=== PATIENT | female | born 2000 | race Caucasian/White ===

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

== ENCOUNTER 2021-02-17 08:00 | Outpatient (CLI) | payer MEDICAID ==
[2021-02-18 19:57] LABS: BACTERIAL VAGINOSIS DNA NEGATIVE (NEGATIVE); CANDIDA GLABRATA DNA NEGATIVE (NEGATIVE); CANDIDA GROUP DNA POSITIVE (NEGATIVE); CANDIDA KRUSEI DNA NEGATIVE (NEGATIVE); TRICHOMONAS VAGINALIS DNA NEGATIVE (NEGATIVE)
== END 2021-02-17 23:59 | disposition home or self-care (01) ==
LOC: LAB 08:00
PROVIDERS: ATTEND Obstetrics & Gynecology
DX: B37.9 Candidiasis, unspecified (principal)
CPT/HCPCS: 87661; 87801

== ENCOUNTER 2022-02-01 13:49 | Emergency (ER) | payer MEDICAID ==
--- NOTE | 2022-02-01 16:35 | ED Physician Documentation ---
History of Present Illness - Stated complaint Stated Complaint: FACE NUMB/MIGRAINE - Chief complaint Chief Complaint: Neuro - History obtained from History obtained from: Patient - History of Present Illness Timing: How many weeks ago (several weeks) Pain level max: 7 Pain level now: 0 - Additonal information Additional information: Patient is a 21-year-old female who presents to the emergency department stating she has a history of migraine headaches. 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 She had MRIs of this area until she was 18, but then lost contact with [facility]. She states that there was thinning of her optic nerves bilaterally. She states that over the past 4 weeks she has had increased frequency of headache. This has been accompanied by left facial tingling and left arm tingling. The symptoms seem to resolve when her headache resolves. Nothing seems to make it better or worse. Does not currently have a neurologist. She does have a primary care provider in [place]. Denies any possibility of . Does have a sound that is almost 2 years old. Patient states that she has a family history of brain aneurysms as well. There is also a family history of brain cancer. 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 HEENT: None Psych: Depression, Anxiety, Obsessive compulsive disorder Musculoskeletal: None Derm: None - Past Surgical History Past Surgical History: No General: Other - Present Medications Home Medications: Ambulatory Orders Medication Instructions Recorded Confirmed No Known Home Medications 02/01/22 02/01/22 - Allergies Allergies/Adverse Reactions: Allergies Allergy/AdvReac Type Severity Reaction Status Date / Time No Known Drug Allergies Allergy Verified 02/01/22 14:00 - Social History Does the pt smoke?: No Smoking Status: Never smoker Does the pt drink ETOH?: No Does the pt have substance abuse?: No - Immunizations Immunizations are current?: Yes - POLST Patient has POLST: No PD ED PE NORMAL - Vitals Vital signs reviewed: Yes - General General: Alert and oriented X 3, No acute distress - HEENT HEENT: Atraumatic, PERRL, EOMI, Moist mucous membranes - Neck Neck: Supple, no meningeal sign - Cardiac Cardiac: RRR, Strong equal pulses - Respiratory Respiratory: No respiratory distress, Clear bilaterally - Abdomen Abdomen: Soft, Non tender, Non distended - Back Back: No spinal TTP - Derm Derm: Warm and dry - Neuro Neuro: Alert and oriented X 3, 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, No motor deficit, No sensory deficit, Normal speech Eye Opening: Spontaneous Motor: Obeys Commands Verbal: Oriented GCS Score: 15 Results - Vitals Vitals: Vital Signs - 24 hr 02/01/22 02/01/22 02/01/22 13:57 16:49 18:00 Temperature 36.6 C 36.5 C 36.6 C Heart Rate 92 89 89 Respiratory 14 14 16 Rate Blood Pressure 114/66 96/81 H 128/83 H O2 Saturation 98 98 99 Oxygen O2 Source Room air - Labs Labs: Laboratory Tests 02/01/22 02/01/22 02/01/22 16:45 16:45 16:45 WBC 6.4 RBC 4.50 Hgb 13.8 Hct 38.3 MCV 85.1 MCH 30.7 MCHC 36.0 RDW 12.5 Plt Count 269 MPV 9.3 Neut # (Auto) 3.9 Lymph # (Auto) 1.5 [place] # (Auto) 0.9 Eos # (Auto) 0.1 Baso # (Auto) 0.1 Absolute Nucleated RBC 0.00 Nucleated RBC % 0.0 Sodium 140 Potassium 3.4 L Chloride 105 Carbon Dioxide 26 Anion Gap 9.0 BUN 14 Creatinine 0.6 Estimated GFR (MDRD) 127 Glucose 88 Calcium 10.0 Serum HCG, Qual NEGATIVE - Rads (name of study) CTA head Radiology: Final report received, EMP read contemporaneously, See rad report CTA neck Radiology: Final report received, EMP read contemporaneously, See rad report PD MEDICAL DECISION MAKING - ED course Complexity details: reviewed results, re-evaluated patient, considered differential, d/w patient ED course: No acute findings on CT angiogram of the head and neck. No evidence of aneurysms. No evidence of carotid dissection. 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 Appears to have complex migraines. Asymptomatic here. No neurological deficits. Cranial nerves i ntact. We will have her follow-up with her doctor for further care. Patient counseled regarding signs and symptoms for which I believe and urgent re- evaluation would be necessary. Patient with good understanding of and agreement to plan and is comfortable going home at this time This document was made in part using voice recognition software. While efforts are made to proofread this document, sound alike and grammatical errors may occur. Departure - Departure Disposition: 01 Home, Self Care Clinical Impression: Migraine Qualifiers: Migraine type: unspecified Status migrainosus presence: without status migrainosus Intractability: not intractable Qualified Code(s): G43.909 - Migraine, unspecified, not intractable, without status migrainosus Condition: Good Instructions: ED Headache Migraine Follow-Up: [facility] [Provider Group] Comments: You appear to have complex migraine headaches. Your CT angiogram of your head and neck are normal today. Please follow-up with your doctor for further care. It is recommended that you have an MRI to evaluate your pituitary gland from the enlargement you had as a child. Discharge Date/Time: 02/01/22 18:05
[2022-02-01] MEDS ORDERED: iohexoL-300 100 ML VIAL ONE (17:00)
[2022-02-01 17:01] LABS: BASOPHILS # (AUTO) 0.1 10^3/uL (0.0-0.1); BASOPHILS % (AUTO) 0.8 %; EOSINOPHILS # (AUTO) 0.1 10^3/uL (0.0-0.7); EOSINOPHILS % (AUTO) 0.9 %; HCT - HEMATOCRIT 38.3 % (37.0-47.0); HGB - HEMOGLOBIN 13.8 g/dL (12.0-16.0); LYMPHOCYTES # (AUTO) 1.5 10^3/uL (1.5-3.5); LYMPHOCYTES % (AUTO) 23.6 %; MEAN CORPUSCULAR HEMOGLOBIN 30.7 pg (27.0-31.0); MEAN CORPUSCULAR VOLUME 85.1 fL (81.0-99.0); MEAN PLATELET VOLUME 9.3 fL (7.9-10.8); MONOCYTES # (AUTO) 0.9 10^3/uL (0.0-1.0); MONOCYTES % (AUTO) 14.2 %; NEUTROPHILS # (AUTO) 3.9 10^3/uL (1.5-6.6); NEUTROPHILS % (AUTO) 60.3 %; PLT - PLATELET COUNT 269 10^3/uL (130-450); RED CELL DISTRIBUTION WIDTH 12.5 % (12.0-15.0); WHITE BLOOD COUNT 6.4 x10^3/uL (4.8-10.8)
[2022-02-01 17:07] LABS: CREATININE 0.6 mg/dL (0.4-1.0); POTASSIUM 3.4 mmol/L (3.5-5.0)
[2022-02-01 17:22] LABS: HCG,QUALITATIVE BLOOD NEGATIVE
[2022-02-01] MEDS ORDERED: iohexoL-300 100 ML VIAL IVP ONE (17:39)
--- NOTE | 2022-02-01 17:46 | CT Report ---
PROCEDURE: ANGIO HEAD W/WO INDICATIONS: L sided facial/arm tinglin w RAMIREZ x 4wk, h/o pit mark CONTRAST: IV CONTRAST: Optiray 320 ml: 80 PO CONTRAST: *NO PO CONTRAST TECHNIQUE: Precontrast 4.5 mm thick angled axial sections acquired from the foramen magnum to the vertex. Afte r the administration of intravenous contrast, 1 mm thick sections acquired through the [place] of [place] is. Postcontrast 4.5 mm thick sections then re-acquired from the foramen magnum to the vertex. 3-di mensional yuwsowb-sonucyzpp-tithaawceo (MIP) and/or volume rendering reformats were acquired of the c entral intracranial vasculature. For radiation dose reduction, the following was used: automated ex posure control, adjustment of mA and/or kV according to patient size. COMPARISON: CT head dated 04/01/2019 FINDINGS: Image quality: Excellent. Anterior circulation: Intracranial internal carotid arteries are normal in size and flow. The flow within the paired anterior cerebral arteries is normal and symmetric. The flow within the middle cer ebral arteries is normal and symmetric. The anterior communicating artery is seen. No aneurysms are seen. Posterior circulation: Visualized portions of the vertebral arteries demonstrate normal caliber, and join to form a normal appearing basilar artery. Flow within the posterior cerebral arteries is norm al and symmetric. No aneurysms are seen. CSF spaces: Ventricles are normal in size and shape. Basal cisterns are patent. No extra-axial flu id collections. Brain: No midline shift. No intracranial bleeds or masses. Smith-white matter interface appears int act. Skull and face: Calvarium and facial bones appear intact, without suspicious lesions. Sinuses: Visualized sinuses and mastoids are clear. IMPRESSION: 1. Normal CT head. 2. Normal CTA head. 3. Normal CTA neck. Reviewed by: Yannick Lincoln on 02/01/2022 5:45 PM PDT Approved by: Yannick Lincoln on 02/01/2022 5:45 PM PDT Station ID: [id number]
--- NOTE | 2022-02-01 17:47 | CT Report ---
PROCEDURE: ANGIO NECK W INDICATIONS: L sided facial/arm tinglin w RAMIREZ x 4wk, h/o pit mark CONTRAST: IV CONTRAST: Optiray 320 ml: 80 PO CONTRAST: *NO PO CONTRAST TECHNIQUE: After the administration of intravenous contrast, 1.5 mm axial sections acquired from the aortic arch to the [place] of [place]. Coronal 3-D maximum intensity projection (MIP) and/or volume rendering ref ormats were then performed. For radiation dose reduction, the following was used: automated exposur e control, adjustment of mA and/or kV according to patient size. COMPARISON: None. FINDINGS: Image quality: Excellent. Carotid system: The great vessels demonstrate a conventional anatomy as they arise from the aortic a rch. The origins of the common carotid arteries appear patent. The common carotid arteries demonstr ate normal calibers and courses. The bifurcation regions appear normal bilaterally. The internal ca rotid arteries demonstrate normal caliber and course. Posterior circulation: The origins of the vertebral arteries appear patent. The more superior porti ons of the vertebral arteries demonstrate normal course and caliber. They join to form a normal appe aring basilar artery. Soft tissues: Visualized neck soft tissues demonstrate no suspicious abnormalities. The thyroid is normal in size and there are no incidental findings. Bones: No suspicious bony lesions. Visualized cervical spine appears normally aligned. IMPRESSION: Normal CTA neck The estimate of stenosis included in the report of the imaging study was calculated using the NASCET method Reviewed by: Yannick Lincoln on 02/01/2022 5:45 PM PDT Approved by: Yannick Lincoln on 02/01/2022 5:45 PM PDT Station ID: [id number]
[2022-02-01 18:00] VITALS: BP 128/83
== END 2022-02-01 18:05 | disposition home or self-care (01) ==
LOC: ED 13:49
DX: G43.909 Migraine, unspecified, not intractable, without status migrainosus (principal); E23.7 Disorder of pituitary gland, unspecified
CPT/HCPCS: 36415; 70496; 70498; 80048; 84703; 85025; 99282; 99284; Q9967

== ENCOUNTER 2022-02-26 00:13 | Emergency (ER) | payer MEDICAID ==
--- NOTE | 2022-02-26 01:23 | ED Physician Documentation ---
History of Present Illness - Stated complaint Stated Complaint: FEMALE - Chief complaint Chief Complaint: Abd Pain - History obtained from History obtained from: Patient - Additonal information Additional information: The patient comes to the emergency department chief complaint of vaginal bleeding. She has had 4 positive tests over the last week and a half and she is concerned because she is bleeding. She has had 1 other and has a 2-year-old child from that. The patient was just seen here for headaches about 3-1/2 weeks ago and in preparation for CT scan, had a serum qualitative hCG which was negative. This was on February 01. The patient states her last menstrual period was January 07. Review of Systems Ten Systems: 10 systems reviewed and negative Constitutional: reports: Reviewed and negative Eyes: reports: Reviewed and negative Ears: reports: Reviewed and negative Nose: reports: Reviewed and negative Throat: reports: Reviewed and negative Cardiac: reports: Reviewed and negative Respiratory: reports: Reviewed and negative GI: reports: Reviewed and negative : reports: Vaginal bleeding Skin: reports: Reviewed and negative Musculoskeletal: reports: Reviewed and negative Neurologic: reports: Reviewed and negative Psychiatric: reports: Reviewed and negative Endocrine: reports: Reviewed and negative Immunocompromised: reports: Reviewed and negative PD PAST MEDICAL HISTORY - Past Medical History Past Medical History: Yes Cardiovascular: None Respiratory: None Neuro: Migraines Endocrine/Autoimmune: None GI: None BUSHWALKING GUIDE: 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 : None HEENT: None Psych: Depression, Anxiety, Obsessive compulsive disorder Musculoskeletal: None Derm: None - Past Surgical History Past Surgical History: No General: Other - Present Medications Home Medications: Ambulatory Orders Medication Instructions Recorded Confirmed No Known Home Medications 02/01/22 02/26/22 - Allergies Allergies/Adverse Reactions: Allergies Allergy/AdvReac Type Severity Reaction Status Date / Time No Known Drug Allergies Allergy Verified 02/26/22 00:25 - Social History Does the pt smoke?: No Smoking Status: Never smoker Does the pt drink ETOH?: No Does the pt have substance abuse?: No - Immunizations Immunizations are current?: Yes - POLST Patient has POLST: No PD ED PE NORMAL - Vitals Vital signs reviewed: Yes - General General: Alert and oriented X 3, No acute distress, Well developed/nourished - HEENT HEENT: Atraumatic, PERRL, EOMI, Moist mucous membranes - Neck Neck: Supple, no meningeal sign - Cardiac Cardiac: RRR, No murmur, Strong equal pulses - Respiratory Respiratory: No respiratory distress, Clear bilaterally - Abdomen Abdomen: Soft, Non tender, Non distended - Female Female : Immigration Coordinator present, Other (Moderate dark red vaginal bleeding without clots or tissue. No lesions of external genitalia, vagina, or cervix. Cervical os is closed. No cervical motion tenderness or adnexal tenderness.) - Derm Derm: Normal color, Warm and dry, No rash - Extremities Extremities: No deformity - Neuro Neuro: Alert and oriented X 3 - Psych Psych: Normal mood, Normal affect Results - Vitals Vitals: Vital Signs - 24 hr 02/26/22 02/26/22 00:20 01:28 Temperature 37.1 C Heart Rate 83 80 Respiratory 18 Rate Blood Pressure 145/92 H 119/70 O2 Saturation 98 Oxygen O2 Source Room air - Labs Labs: Laboratory Tests 02/26/22 00:35 HCG, Quant 0.76 PD MEDICAL DECISION MAKING - ED course Complexity details: reviewed results, re-evaluated patient, considered differential, d/w patient ED course: A quantitative hCG was obtained and found to be 0.76. I discussed with the patient that this almost certainly represents a miscarriage, and that her quant would have had to have been at least 25 to trigger a positive test. However, given that 3.5 weeks ago she had a negative hCG, it is certain that the did not reach any significant size, given the exceedingly low level of hCG now. The patient additionally is not having any pain and at this point, I do not feel ultrasound is indicated. We have discussed the need for follow-up and the usual indications for return. Departure - Departure Disposition: 01 Home, Self Care Clinical Impression: Miscarriage Condition: Stable Instructions: Miscarriage Dc Comments: Your hormone levels are extremely lowless than 1. In order to trigger a positive urine test, the hormone level must be 25 or greater. Occasionally, a faulty test will fixed route bus operator positive even without these hormone levels, but this is unusual. Your bleeding will most likely last for around the same length as a period, but likely be a little bit heavier. In order to detect a on ultrasound, we generally need to have a hormone level of around 1500 or higher. Given that you had a negative blood test 3-1/2 weeks ago, and that you are already down to less than 1, Your would not have reached the point of being far enough along to detect on ultrasound. As such, there is no utility to performing this test tonight. If you develop severe pain, you should return to the emergency department. Otherwise, please follow-up with your doctor regarding any further concerns. Discharge Date/Time: 02/26/22 01:28
[2022-02-26 01:29] VITALS: BP 119/70
== END 2022-02-26 01:28 | disposition home or self-care (01) ==
LOC: ED 00:13
DX: O03.9 Complete or unspecified spontaneous abortion without complication (principal)
CPT/HCPCS: 36415; 84702; 99282; 99283

== ENCOUNTER 2022-03-29 08:00 | Outpatient (CLI) | payer MEDICAID ==
[2022-03-29 16:40] LABS: BILIRUBIN,URINE NEGATIVE (NEGATIVE); GLUCOSE, URINE (UA) NEGATIVE (NEGATIVE); KETONES,URINE (UA) NEGATIVE (NEGATIVE); LEUKOCYTE ESTERASE, URINE MODERATE (NEGATIVE); NITRITE,URINE NEGATIVE (NEGATIVE); OCCULT BLOOD,URINE NEGATIVE (NEGATIVE); PROTEIN,URINE NEGATIVE (NEGATIVE); UROBILINOGEN,URINE 0.2 (NORMAL) E.U./dL (NORMAL)
[2022-03-29 17:30] LABS: CLARITY,URINE CLOUDY (CLEAR)
[2022-03-29 17:31] LABS: AMORPHOUS SEDIMENT,UR Marked /LPF; BACTERIA,URINE Many /HPF (None Seen); RBC,URINE 0-5 /HPF (0-5); SQUAMOUS EPITHELIAL CELL,UR MANY Squamous (<= Few)
== END 2022-03-29 23:59 | disposition home or self-care (01) ==
LOC: LAB 08:00
PROVIDERS: ATTEND Nurse Practitioner
DX: Z34.90 Encounter for supervision of normal pregnancy, unspecified, unspecified trimester (principal)
CPT/HCPCS: 81001; 87086

== ENCOUNTER 2022-04-06 19:43 | Outpatient (CLI) | payer MEDICAID ==
--- NOTE | 2022-04-07 19:56 | Ultrasound Report ---
PROCEDURE: OB First Trimester w/TV INDICATIONS: Positive test OUTSIDE/PRIOR DATING DATA: Last menstrual period (LMP): 02/15/2022. LMP-based estimated date of delivery (IVAN): 11/21/2022. First dating scan (date and location): 03/27/2022. Estimated date of delivery (IVAN) from first dating scan: 11/27/2022. The below data below was generated using the ultrasound IVAN of 11/27/2022 TECHNIQUE: Real-time scanning was performed of the fetus and maternal pelvic organs, with image documentation. Endovaginal scanning was also performed to better visualize the fetus and maternal ovaries. COMPARISON: None. FINDINGS: Gestational sac in the uterine fundus measuring 1.9 cm in mean sac diameter. Fetus in the gestational sac measures 0.7 cm. The estimated gestational age of six weeks three days on the basis o f crown-rump length. heart rate 124 bpm. Normal yolk sac noted. Small subchorionic hemorrhage m easuring 1.5 cm. Right corpus luteum. IMPRESSION: Single living intrauterine gestation with estimated ultrasound age 6 weeks three days. Small subchori onic hemorrhage. Reviewed by: Dallin Patel MD on 04/07/2022 7:55 PM PST Approved by: Dallin Patel MD on 04/07/2022 7:55 PM PST Station ID: [id number]
== END 2022-04-06 19:44 | disposition home or self-care (01) ==
LOC: DI 19:43
PROVIDERS: ATTEND Nurse Practitioner
DX: O20.9 Hemorrhage in early pregnancy, unspecified (principal); Z3A.01 Less than 8 weeks gestation of pregnancy

== ENCOUNTER 2022-04-29 08:00 | Outpatient (CLI) | payer MEDICAID ==
[2022-04-30 17:24] LABS: CHLAMYDIA TRACHOMATIS DNA NEGATIVE (NEGATIVE); NEISSERIA GONORRHOEAE DNA NEGATIVE (NEGATIVE); TRICHOMONAS VAGINALIS DNA NEGATIVE (NEGATIVE)
== END 2022-04-29 23:59 | disposition home or self-care (01) ==
LOC: LAB.WC 08:00
PROVIDERS: ATTEND Obstetrics & Gynecology
DX: Z34.90 Encounter for supervision of normal pregnancy, unspecified, unspecified trimester (principal)
CPT/HCPCS: 87086; 87491; 87591; 87661

== ENCOUNTER 2022-05-03 13:52 | Outpatient (CLI) | payer MEDICAID ==
[2022-05-03 14:36] LABS: BASOPHILS % (AUTO) 0.4 %; EOSINOPHILS # (AUTO) 0.1 10^3/uL (0.0-0.7); EOSINOPHILS % (AUTO) 1.2 %; HCT - HEMATOCRIT 36.8 % (37.0-47.0); LYMPHOCYTES # (AUTO) 1.7 10^3/uL (1.5-3.5); LYMPHOCYTES % (AUTO) 22.2 %; MEAN CORPUSCULAR HEMOGLOBIN 29.9 pg (27.0-31.0); MEAN CORPUSCULAR HGB CONC 35.3 g/dL (32.0-36.0); MEAN CORPUSCULAR VOLUME 84.6 fL (81.0-99.0); MEAN PLATELET VOLUME 9.4 fL (7.9-10.8); MONOCYTES # (AUTO) 0.6 10^3/uL (0.0-1.0); MONOCYTES % (AUTO) 7.5 %; NEUTROPHILS # (AUTO) 5.1 10^3/uL (1.5-6.6); NEUTROPHILS % (AUTO) 68.4 %; PLT - PLATELET COUNT 240 10^3/uL (130-450); RED BLOOD COUNT 4.35 10^6/uL (4.20-5.40); RED CELL DISTRIBUTION WIDTH 11.9 % (12.0-15.0); WHITE BLOOD COUNT 7.4 x10^3/uL (4.8-10.8)
[2022-05-04 05:10] LABS: HBsAG SCREEN Negative (Negative); HCV AB <0.1 s/co ratio (0.0-0.9)
[2022-05-04 06:09] LABS: RPR Non Reactive (Non Reactive)
[2022-05-04 08:10] LABS: VARICELLA-ZOSTER AB IGG <135 index (Immune >165)
[2022-05-05 00:07] LABS: HIV SCREEN 4TH GENERATION Non Reactive (Non Reactive)
== END 2022-05-03 13:53 | disposition home or self-care (01) ==
LOC: LAB 13:52
PROVIDERS: ATTEND Nurse Practitioner Obstetrics & Gynecology
DX: Z36.89 Encounter for other specified antenatal screening (principal)
CPT/HCPCS: 36415; 85025; 86592; 86762; 86787; 86803; 86850; 86900; 86901; 87340; 87389

== ENCOUNTER 2022-05-06 14:02 | Outpatient (CLI) | payer MEDICAID | END 2022-05-06 14:03 | disposition home or self-care (01) | LOC: LAB 14:02 | PROVIDERS: ATTEND Obstetrics & Gynecology | DX: Z34.90 Encounter for supervision of normal pregnancy, unspecified, unspecified trimester (principal) | CPT/HCPCS: 36415 ==

== ENCOUNTER 2022-05-25 09:43 | Emergency (ER) | payer MEDICAID ==
[2022-05-25] MEDS ORDERED: SODIUM CHLORIDE 0.9% 1,000 ML IV STA (10:27)
[2022-05-25 10:42] LABS: BASOPHILS % (AUTO) 0.4 %; EOSINOPHILS # (AUTO) 0.1 10^3/uL (0.0-0.7); EOSINOPHILS % (AUTO) 1.6 %; HCT - HEMATOCRIT 33.2 % (37.0-47.0); HGB - HEMOGLOBIN 11.6 g/dL (12.0-16.0); LYMPHOCYTES % (AUTO) 19.8 %; MEAN CORPUSCULAR HEMOGLOBIN 29.5 pg (27.0-31.0); MEAN CORPUSCULAR HGB CONC 34.9 g/dL (32.0-36.0); MEAN CORPUSCULAR VOLUME 84.5 fL (81.0-99.0); MEAN PLATELET VOLUME 9.4 fL (7.9-10.8); MONOCYTES # (AUTO) 0.5 10^3/uL (0.0-1.0); MONOCYTES % (AUTO) 10.7 %; NEUTROPHILS # (AUTO) 3.3 10^3/uL (1.5-6.6); NEUTROPHILS % (AUTO) 67.3 %; PLT - PLATELET COUNT 187 10^3/uL (130-450); RED BLOOD COUNT 3.93 10^6/uL (4.20-5.40); RED CELL DISTRIBUTION WIDTH 13.2 % (12.0-15.0); WHITE BLOOD COUNT 4.9 x10^3/uL (4.8-10.8)
[2022-05-25 10:57] LABS: ALBUMIN 3.7 g/dL (3.2-5.5); ALBUMIN/GLOBULIN RATIO 1.2 (1.0-2.2); BILIRUBIN,TOTAL 1.1 mg/dL (0.2-1.0); CALCIUM 9.1 mg/dL (8.5-10.3); CREATININE 0.4 mg/dL (0.4-1.0); POTASSIUM 3.7 mmol/L (3.5-5.0); TOTAL PROTEIN 6.9 g/dL (6.7-8.2)
--- NOTE | 2022-05-25 11:18 | XRAY Report ---
PROCEDURE: Chest 1 View X-Ray INDICATIONS: CP TECHNIQUE: One view of the chest was acquired. COMPARISON: None. FINDINGS: Surgical changes and devices: None. Lungs and pleura: No pleural effusions or pneumothorax. Lungs are clear. Mediastinum: Mediastinal contours appear normal. Heart size is normal. Bones and chest wall: No suspicious bony lesions. Overlying soft tissues appear unremarkable. IMPRESSION: No acute pulmonary process. Reviewed by: Alejandra Bryan MD on 05/25/2022 11:16 AM [facility] Approved by: Alejandra Bryan MD on 05/25/2022 11:16 AM [facility] Station ID: [id number]
[2022-05-25 11:25] VITALS: BP 116/86
[2022-05-25 11:33] LABS: BILIRUBIN,URINE NEGATIVE (NEGATIVE); GLUCOSE, URINE (UA) NEGATIVE (NEGATIVE); KETONES,URINE (UA) NEGATIVE (NEGATIVE); LEUKOCYTE ESTERASE, URINE NEGATIVE (NEGATIVE); NITRITE,URINE NEGATIVE (NEGATIVE); OCCULT BLOOD,URINE TRACE-INTA (NEGATIVE); PROTEIN,URINE NEGATIVE (NEGATIVE); UROBILINOGEN,URINE 0.2 (NORMAL) E.U./dL (NORMAL)
[2022-05-25 11:34] LABS: CLARITY,URINE HAZY (CLEAR)
[2022-05-25 11:41] LABS: BACTERIA,URINE Few /HPF (None Seen); RBC,URINE 0-5 /HPF (0-5); SQUAMOUS EPITHELIAL CELL,UR MANY Squamous (<= Few); WBC,URINE 0-3 /HPF (0-5)
--- NOTE | 2022-05-25 11:51 | ED Physician Documentation ---
History of Present Illness - Stated complaint Stated Complaint: CHEST PX - Chief complaint Chief Complaint: Neuro - History obtained from History obtained from: Patient - Additonal information Additional information: Patient is a 21-year-old female who is approximately 13 weeks presenting for evaluation after having an episode where she felt ringing in her ears followed by a mild headache. After that she reported feeling heaviness in her chest and short of breath. She said that her legs felt weak. This started around 8:00 this morning and lasted approximately 10 minutes. She reports having 2 similar episodes yesterday. She reports being under significant amount of stress due to her significant other of 9 years breaking up with her.She says that she has been working a lot which is also been causing her stress and she feels little dehydrated.She was seen approximately 1 week ago for abdominal cramping. She denies any current vaginal bleeding or cramping. G4, P1 with 1 prior miscarriage and 1 prior ectopic . 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 : None HEENT: None Psych: Depression, Anxiety, Obsessive compulsive disorder Musculoskeletal: None Derm: None - Past Surgical History Past Surgical History: No General: Other - Present Medications Home Medications: Ambulatory Orders Medication Instructions Recorded Confirmed Escitalopram [Lexapro] 10 mg PO DAILY 05/17/22 05/25/22 Pnv No.95/Ferrous Fum/Folic AC 1 each PO DAILY 05/17/22 05/25/22 [ Tablet] - Allergies Allergies/Adverse Reactions: Allergies Allergy/AdvReac Type Severity Reaction Status Date / Time No Known Drug Allergies Allergy Verified 05/25/22 09:53 - Social History Does the pt smoke?: No Smoking Status: Never smoker Does the pt drink ETOH?: No Does the pt have substance abuse?: No - Immunizations Immunizations are current?: Yes - POLST Patient has POLST: No PD ED PE NORMAL - General General: Alert and oriented X 3, No acute distress, Well developed/nourished - HEENT HEENT: Atraumatic - Neck Neck: Supple, no meningeal sign - Cardiac Cardiac: RRR - Respiratory Respiratory: No respiratory distress, Clear bilaterally - Abdomen Abdomen: Normal bowel sounds, Soft, Non tender, Non distended - Derm Derm: Warm and dry - Neuro Neuro: Alert and oriented X 3, supervisor delivery department 2-12 intact, No motor deficit, No sensory deficit, Normal speech, Other (Normal gait) Eye Opening: Spontaneous Motor: Obeys Commands Verbal: Oriented GCS Score: 15 Results - Vitals Vitals: Vital Signs - 24 hr 05/25/22 05/25/22 05/25/22 09:47 10:07 11:24 Temperature 36.3 C L Heart Rate 73 80 75 Respiratory 16 15 18 Rate Blood Pressure 123/70 125/82 H 116/86 H O2 Saturation 100 95 100 Oxygen O2 Source Room air - EKG (time done) 1025 Rate: Rate (enter#) (73) Rhythm: NSR [place]: Normal Ischemia: No: ST elevation c/w ischemia - Labs Labs: Laboratory Tests 05/25/22 05/25/22 05/25/22 10:34 10:34 10:34 WBC 4.9 RBC 3.93 L Hgb 11.6 L Hct 33.2 L MCV 84.5 MCH 29.5 MCHC 34.9 RDW 13.2 Plt Count 187 MPV 9.4 Neut # (Auto) 3.3 Lymph # (Auto) 1.0 L [place] # (Auto) 0.5 Eos # (Auto) 0.1 Baso # (Auto) 0.0 Absolute Nucleated RBC 0.00 Nucleated RBC % 0.0 Sodium 133 L Potassium 3.7 Chloride 101 Carbon Dioxide 23 Anion Gap 9.0 BUN 6 Creatinine 0.4 Estimated GFR (MDRD) 203 Glucose 88 Calcium 9.1 Total Bilirubin 1.1 H AST 17 ALT 16 Alkaline Phosphatase 34 L Troponin I High Sens < 2.3 L Total Protein 6.9 Albumin 3.7 Globulin 3.2 Albumin/Globulin Ratio 1.2 Urine Color Urine Clarity Urine pH Ur Specific [place] Urine Protein Urine Glucose (UA) Urine Ketones Urine Occult Blood Urine Nitrite Urine Bilirubin Urine Urobilinogen Ur Leukocyte Esterase Urine RBC Urine WBC Ur Squamous Epith Cells Urine Bacteria Ur Microscopic Review Urine Culture Comments 05/25/22 11:15 WBC RBC Hgb Hct MCV MCH MCHC RDW Plt Count MPV Neut # (Auto) Lymph # (Auto) [place] # (Auto) Eos # (Auto) Baso # (Auto) Absolute Nucleated RBC Nucleated RBC % Sodium Potassium Chloride Carbon Dioxide Anion Gap BUN Creatinine Estimated GFR (MDRD) Glucose Calcium Total Bilirubin AST ALT Alkaline Phosphatase Troponin I High Sens Total Protein Albumin Globulin Albumin/Globulin Ratio Urine Color YELLOW Urine Clarity HAZY Urine pH 7.0 Ur Specific [place] 1.010 Urine Protein NEGATIVE Urine Glucose (UA) NEGATIVE Urine Ketones NEGATIVE Urine Occult Blood TRACE-INTA Urine Nitrite NEGATIVE Urine Bilirubin NEGATIVE Urine Urobilinogen 0.2 (NORMAL) Ur Leukocyte Esterase NEGATIVE Urine RBC 0-5 Urine WBC 0-3 Ur Squamous Epith Cells MANY Squamous H Urine Bacteria Few Ur Microscopic Review INDICATED Urine Culture Comments NOT INDICATED PD Medical Decision Making - ED course Complexity details: reviewed results, re-evaluated patient, d/w patient ED course: Patient presenting for evaluation of heaviness in her chest in the setting of recent life stressors. She is and is having relationship issues. Her vital signs are stable. heart tones are within normal limits. No bleeding or cramping. Her EKG is reassuring. Her labs are reviewed with very mild anemia and otherwise normal including negative troponin. Her chest x-ray is clear.She is only 13 weeks along in her and does not have other symptoms to suggest that this is a pulmonary embolism such as leg swelling or any persistent symptoms. She has been symptom-free here. She is oxygenating well and is not tachycardic. Patient is counseled on need for close follow-up with her OB as well as concerning symptoms to return for. Departure - Departure Disposition: 01 Home, Self Care Clinical Impression: Chest pain Condition: Stable Instructions: ED Chest Pain Atypical Unkn Cause Comments: Your labs show mild anemia (Hgb 11.6). Please continue with taking your vitamins including iron. Your cardiac testing is normal and your electrolytes are also normal. Your chest x-ray is clear. Please continue with staying hydrated. If you have any new or worsening symptoms Such as worsening pain, labored breathing, leg swelling please return to the ER. Otherwise please follow-up with your OB as scheduled. Forms: Activity restrictions Discharge Date/Time: 05/25/22 12:10
== END 2022-05-25 12:10 | disposition home or self-care (01) ==
LOC: ED 09:43
DX: O99.891 Other specified diseases and conditions complicating pregnancy (principal); R07.9 Chest pain, unspecified; O99.011 Anemia complicating pregnancy, first trimester; Z3A.13 13 weeks gestation of pregnancy
CPT/HCPCS: 36415; 80053; 81001; 81003; 84484; 85025; 87086; 93005; 96360; 99284

== ENCOUNTER 2022-06-28 13:32 | Emergency (ER) | payer MEDICAID ==
[2022-06-28 14:07] LABS: BASOPHILS % (AUTO) 0.4 %; EOSINOPHILS # (AUTO) 0.1 10^3/uL (0.0-0.7); EOSINOPHILS % (AUTO) 1.2 %; HCT - HEMATOCRIT 35.4 % (37.0-47.0); HGB - HEMOGLOBIN 12.8 g/dL (12.0-16.0); LYMPHOCYTES # (AUTO) 1.6 10^3/uL (1.5-3.5); LYMPHOCYTES % (AUTO) 21.9 %; MEAN CORPUSCULAR HEMOGLOBIN 31.4 pg (27.0-31.0); MEAN CORPUSCULAR HGB CONC 36.2 g/dL (32.0-36.0); MEAN CORPUSCULAR VOLUME 86.8 fL (81.0-99.0); MEAN PLATELET VOLUME 9.5 fL (7.9-10.8); MONOCYTES # (AUTO) 0.6 10^3/uL (0.0-1.0); MONOCYTES % (AUTO) 8.2 %; NEUTROPHILS % (AUTO) 68.2 %; PLT - PLATELET COUNT 227 10^3/uL (130-450); RED BLOOD COUNT 4.08 10^6/uL (4.20-5.40); RED CELL DISTRIBUTION WIDTH 13.2 % (12.0-15.0); WHITE BLOOD COUNT 7.4 x10^3/uL (4.8-10.8)
[2022-06-28 14:18] LABS: ALBUMIN 3.7 g/dL (3.2-5.5); ALBUMIN/GLOBULIN RATIO 1.1 (1.0-2.2); BILIRUBIN,TOTAL 1.4 mg/dL (0.2-1.0); CREATININE 0.4 mg/dL (0.4-1.0); POTASSIUM 3.9 mmol/L (3.5-5.0); TOTAL PROTEIN 7.2 g/dL (6.7-8.2)
--- NOTE | 2022-06-28 14:51 | ED Physician Documentation ---
History of Present Illness - Stated complaint Stated Complaint: SPOTTING,CRAMPING - Chief complaint Chief Complaint: Abd Pain - History obtained from History obtained from: Patient - Additonal information Additional information: , she has had an and with her live child she had labor but managed to deliver at term. She is 18 weeks along and since yesterday has noted some pelvic cramping with some spotting much less than usual menses. 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 : None HEENT: None Psych: Depression, Anxiety, Obsessive compulsive disorder Musculoskeletal: None Derm: None - Past Surgical History Past Surgical History: No General: Other - Present Medications Home Medications: Ambulatory Orders Medication Instructions Recorded Confirmed Escitalopram [Lexapro] 10 mg PO DAILY 05/17/22 06/28/22 Pnv No.95/Ferrous Fum/Folic AC 1 each PO DAILY 05/17/22 06/28/22 [ Tablet] - Allergies Allergies/Adverse Reactions: Allergies Allergy/AdvReac Type Severity Reaction Status Date / Time No Known Drug Allergies Allergy Verified 06/28/22 13:40 - Social History Does the pt smoke?: No Smoking Status: Never smoker Does the pt drink ETOH?: No Does the pt have substance abuse?: No - Immunizations Immunizations are current?: Yes - POLST Patient has POLST: No PD ED PE NORMAL - Vitals Vital signs reviewed: Yes - General General: Alert and oriented X 3, No acute distress - Abdomen Abdomen: Normal bowel sounds, Soft, Non tender, Other (Bedside ultrasound demonstrates single live intrauterine with a heart rate of 144.) Results - Vitals Vitals: Vital Signs - 24 hr 06/28/22 06/28/22 13:35 15:41 Temperature 36.6 C Heart Rate 78 83 Respiratory 16 16 Rate Blood Pressure 120/65 123/67 O2 Saturation 99 99 Oxygen O2 Source Room air - Labs Labs: Laboratory Tests 06/28/22 06/28/22 06/28/22 13:55 13:55 13:55 WBC 7.4 RBC 4.08 L Hgb 12.8 Hct 35.4 L MCV 86.8 MCH 31.4 H MCHC 36.2 H RDW 13.2 Plt Count 227 MPV 9.5 Neut # (Auto) 5.0 Lymph # (Auto) 1.6 [place] # (Auto) 0.6 Eos # (Auto) 0.1 Baso # (Auto) 0.0 Absolute Nucleated RBC 0.00 Nucleated RBC % 0.0 Sodium 137 Potassium 3.9 Chloride 106 Carbon Dioxide 25 Anion Gap 6.0 BUN 12 Creatinine 0.4 Estimated GFR (MDRD) 203 Glucose 84 Calcium 10.0 Total Bilirubin 1.4 H AST 16 ALT 11 Alkaline Phosphatase 37 L Total Protein 7.2 Albumin 3.7 Globulin 3.5 Albumin/Globulin Ratio 1.1 Lipase 33 HCG, Quant Urine Color Urine Clarity Urine pH Ur Specific [place] Urine Protein Urine Glucose (UA) Urine Ketones Urine Occult Blood Urine Nitrite Urine Bilirubin Urine Urobilinogen Ur Leukocyte Esterase Urine RBC Urine WBC Ur Squamous Epith Cells Urine Crystals Urine Bacteria Urine Mucus Urine Yeast Ur Microscopic Review Urine Culture Comments Blood Type A POSITIVE 06/28/22 06/28/22 13:55 14:54 WBC RBC Hgb Hct MCV MCH MCHC RDW Plt Count MPV Neut # (Auto) Lymph # (Auto) [place] # (Auto) Eos # (Auto) Baso # (Auto) Absolute Nucleated RBC Nucleated RBC % Sodium Potassium Chloride Carbon Dioxide Anion Gap BUN Creatinine Estimated GFR (MDRD) Glucose Calcium Total Bilirubin AST ALT Alkaline Phosphatase Total Protein Albumin Globulin Albumin/Globulin Ratio Lipase HCG, Quant 9823.00 Urine Color YELLOW Urine Clarity HAZY Urine pH 6.0 Ur Specific [place] 1.025 Urine Protein NEGATIVE Urine Glucose (UA) NEGATIVE Urine Ketones NEGATIVE Urine Occult Blood NEGATIVE Urine Nitrite NEGATIVE Urine Bilirubin NEGATIVE Urine Urobilinogen 1 (NORMAL) Ur Leukocyte Esterase NEGATIVE Urine RBC 0-5 Urine WBC 4-5 Ur Squamous Epith Cells MANY Squamous H Urine Crystals >50 Calcium Oxalate Urine Bacteria Many H Urine Mucus Marked Strands Urine Yeast PRESENT Ur Microscopic Review INDICATED Urine Culture Comments NOT INDICATED Blood Type PD Medical Decision Making - ED course ED course: 21-year-old at 18 weeks, G3, P1 presents with cramping and spotting. Reassuring bedside ultrasound. CBC reviewed and normal. CMP reviewed and unremarkable. Urinalysis unremarkable. Case discussed with Dr. Grossman by phone who recommended a cervical length evaluation by ultrasound. If greater than 2.5 cm, expectant management only. If less than that I will call him back. The computer discovery teacher reported to me that her cervical length was 3.2 cm. Departure - Departure Disposition: 01 Home, Self Care Clinical Impression: Abdominal cramping affecting Condition: Good Record reviewed to determine appropriate education?: Yes Instructions: ED Preg Established Normal Sxs Comments: Your cervical length and other diagnostics are reassuring for this . There is no evidence of UTI. Follow-up with Ms. Lopez later this week for reevaluation. Return for new or worsening symptoms.
[2022-06-28 15:15] LABS: BILIRUBIN,URINE NEGATIVE (NEGATIVE); GLUCOSE, URINE (UA) NEGATIVE (NEGATIVE); KETONES,URINE (UA) NEGATIVE (NEGATIVE); LEUKOCYTE ESTERASE, URINE NEGATIVE (NEGATIVE); NITRITE,URINE NEGATIVE (NEGATIVE); OCCULT BLOOD,URINE NEGATIVE (NEGATIVE); PROTEIN,URINE NEGATIVE (NEGATIVE); UROBILINOGEN,URINE 1 (NORMAL) E.U./dL (NORMAL)
[2022-06-28 15:17] LABS: CLARITY,URINE HAZY (CLEAR)
[2022-06-28 15:31] LABS: BACTERIA,URINE Many /HPF (None Seen); CRYSTALS,URINE >50 Calcium Oxalate /LPF; MUCUS,URINE Marked Strands; RBC,URINE 0-5 /HPF (0-5); SQUAMOUS EPITHELIAL CELL,UR MANY Squamous (<= Few); YEAST,URINE PRESENT
[2022-06-28 16:16] VITALS: BP 117/83
--- NOTE | 2022-06-28 16:54 | Ultrasound Report ---
PROCEDURE: OB Limited INDICATIONS: eval cervical length for spotting OUTSIDE/PRIOR DATING DATA: Last menstrual period (LMP): 02/15/2022. LMP-based estimated date of delivery (IVAN): 11/21/2022. First dating scan (date and location): 04/06/2020. Estimated date of delivery (IVAN) from first dating scan: 11/27/2022. The below data below was generated using the ultrasound IVAN of 11/27/2022 TECHNIQUE: Real-time scanning was performed of the fetus, with image documentation. COMPARISON: 04/06/22 FINDINGS: A single living intrauterine gestation is present. Presentation: transverse Placenta: Placental position is fundal, without previa. Amniotic fluid index: 13.5 cm, within normal limits for gestational age. It is pocket measures 4.4 c m heart rate: 138 beats per minutes. Maternal cervical canal: 3.2 cm long; normal length is 2.5 cm or more. Estimated gestational age from initial scan: 18 weeks 2 days. Cervical length: 3-3.5 cm. IMPRESSION: Single live intrauterine with ultrasound gestational age of 18 weeks 2 days. Cervical length 3-3.5 cm. It previously measured 3.2 cm on prior exam. Reviewed by: Alejandra Bryan MD on 06/28/2022 4:52 PM PST Approved by: Alejandra Bryan MD on 06/28/2022 4:52 PM PST Station ID: [id number]
== END 2022-06-28 16:25 | disposition home or self-care (01) ==
LOC: ED 13:32
DX: O99.891 Other specified diseases and conditions complicating pregnancy (principal); R10.2 Pelvic and perineal pain; Z3A.18 18 weeks gestation of pregnancy
CPT/HCPCS: 36415; 80053; 81001; 81003; 83690; 84702; 85025; 86900; 86901; 87086; 99283; 99284

== ENCOUNTER 2022-07-16 15:55 | Outpatient (CLI) | payer MEDICAID ==
--- NOTE | 2022-07-17 11:43 | Ultrasound Report ---
PROCEDURE: OB Detailed Eval INDICATIONS: SUPERVISION OF OUTSIDE/PRIOR DATING DATA: Last menstrual period (LMP): 02/15/2022. LMP-based estimated date of delivery (IVAN): 11/21/2022. First dating scan (date and location): 04/06/2022. Estimated date of delivery (IVAN) from first dating scan: 11/27/2022. The below data below was generated using the ultrasound IVAN of 11/27/2022 TECHNIQUE: Real-time scanning was performed of the fetus, with image documentation and biometric measurements. Endovaginal scanning: Not performed COMPARISON: 06/28/2022 FINDINGS: General: A single living intrauterine gestation is present. Presentation: Vertex Placenta: Placental position is posterior, without previa. Amniotic fluid index: 11.4 cm, normal for gestational age. heart rate: 144 beats per minute. Maternal cervical canal: 3.4 cm long; normal length is 2.5 cm or more. biometrics: Biparietal diameter: 5.0 cm, 21 weeks 1 day Head circumference: 18.8 cm, 21 weeks 1 day Abdominal circumference: 16.2 cm, 29 weeks 2 days Femur length: 3.4 cm, 20 weeks 5 days Estimated gestational age from initial scan: 20 weeks 6 days Composite gestational age from present scan: 21 weeks 0 days Estimated weight and percentile: 393 g, 53rd percentile Measurement variability in biometric dating: +/- 10 days from 12-20 weeks gestation, +/- 2 weeks from 20-30 weeks gestation, +/- 3 weeks at 30 weeks gestation or later. Anatomic survey: Neuro: Ventricles are normal at less than 10 mm. Cisterna magna is normal at 3-11 mm. Cerebellum i s normal in size and morphology. Nuchal skin fold: Normal at less than 6 mm between 14 and 20 weeks gestational age. Face: Nose and lips, facial profile are normal. Spine: No evidence for spina bifida. Heart: 4-chambered heart is present, with normal ventricular outflow tracts. Diaphragm: Diaphragm is intact. Stomach: Left-sided stomach is present. Kidneys: No hydronephrosis. Normal is less than 5 mm in 2nd trimester, less than 7 mm in 3rd trimester. Cord: 3 vessel cord has orthotopic insertion. Bladder: Normal in size. Extremities: All 4 extremities are visualized. IMPRESSION: 1. Single living intrauterine . 2. Estimated weight at the 53rd percentile. 3. Normal second trimester anatomy survey. No anomalies detected at this time. Reviewed by: Adolph Martinez MD on 07/17/2022 11:42 AM PDT Approved by: Adolph Martinez MD on 07/17/2022 11:42 AM PDT Station ID: [id number]
== END 2022-07-16 15:56 | disposition home or self-care (01) ==
LOC: DI 15:55
PROVIDERS: ATTEND Nurse Practitioner Obstetrics & Gynecology
DX: Z34.92 Encounter for supervision of normal pregnancy, unspecified, second trimester (principal); Z36.89 Encounter for other specified antenatal screening

== ENCOUNTER 2022-08-10 20:20 | Outpatient (CLI) | payer MEDICAID ==
[2022-08-10 20:47] VITALS: BP 118/70
[2022-08-10] MEDS: LACTATED RINGERS 500 ML IV ONE (20:47)
[2022-08-10 20:48] LABS: BILIRUBIN,URINE NEGATIVE (NEGATIVE); GLUCOSE, URINE (UA) NEGATIVE (NEGATIVE); KETONES,URINE (UA) NEGATIVE (NEGATIVE); LEUKOCYTE ESTERASE, URINE NEGATIVE (NEGATIVE); NITRITE,URINE NEGATIVE (NEGATIVE); OCCULT BLOOD,URINE NEGATIVE (NEGATIVE); PH,URINE 6.5 PH (5.0-7.5); PROTEIN,URINE NEGATIVE (NEGATIVE); UROBILINOGEN,URINE 0.2 (NORMAL) E.U./dL (NORMAL)
[2022-08-10 20:52] LABS: BASOPHILS % (AUTO) 0.3 %; EOSINOPHILS # (AUTO) 0.1 10^3/uL (0.0-0.7); EOSINOPHILS % (AUTO) 0.8 %; HCT - HEMATOCRIT 31.4 % (37.0-47.0); HGB - HEMOGLOBIN 11.2 g/dL (12.0-16.0); LYMPHOCYTES # (AUTO) 1.7 10^3/uL (1.5-3.5); LYMPHOCYTES % (AUTO) 24.3 %; MEAN CORPUSCULAR HEMOGLOBIN 31.1 pg (27.0-31.0); MEAN CORPUSCULAR HGB CONC 35.7 g/dL (32.0-36.0); MEAN CORPUSCULAR VOLUME 87.2 fL (81.0-99.0); MEAN PLATELET VOLUME 9.3 fL (7.9-10.8); MONOCYTES # (AUTO) 0.8 10^3/uL (0.0-1.0); MONOCYTES % (AUTO) 10.8 %; NEUTROPHILS # (AUTO) 4.5 10^3/uL (1.5-6.6); NEUTROPHILS % (AUTO) 63.5 %; PLT - PLATELET COUNT 219 10^3/uL (130-450); RED CELL DISTRIBUTION WIDTH 12.5 % (12.0-15.0); WHITE BLOOD COUNT 7.2 x10^3/uL (4.8-10.8)
[2022-08-10 21:04] LABS: CLARITY,URINE CLEAR (CLEAR)
[2022-08-10 21:05] LABS: ALBUMIN 3.5 g/dL (3.2-5.5); ALBUMIN/GLOBULIN RATIO 1.1 (1.0-2.2); BILIRUBIN,TOTAL 1.1 mg/dL (0.2-1.0); CREATININE 0.3 mg/dL (0.4-1.0); POTASSIUM 3.5 mmol/L (3.5-5.0); TOTAL PROTEIN 6.6 g/dL (6.7-8.2)
[2022-08-10 21:05] LABS: AMORPHOUS SEDIMENT,UR Rare /LPF; BACTERIA,URINE Few /HPF (None Seen); MUCUS,URINE Few Strands; RBC,URINE None Seen /HPF (0-5); SQUAMOUS EPITHELIAL CELL,UR MOD Squamous (<= Few); WBC,URINE 0-3 /HPF (0-5)
[2022-08-10] MEDS: ONDANSETRON 4 MG/2 ML VIAL IVP PRN (21:19)
[2022-08-10] MEDS: METOCLOPRAMIDE 10 MG/2 ML VIAL IVP ONE (22:44)
--- NOTE | 2022-08-12 17:33 | PROVIDER PROGRESS NOTE ---
- HPI Chief Complaint: Decreased movement Current : Vital Signs Temperature 36.7 C 08/10/22 20:28 Heart Rate 88 08/10/22 20:28 Respiratory Rate 18 08/10/22 20:28 Blood Pressure 118/70 08/10/22 20:28 Temperature 36.7 C 08/10/22 20:28 Heart Rate 80 08/10/22 22:55 Respiratory Rate 18 08/10/22 20:28 Blood Pressure 118/70 08/10/22 20:28 O2 Saturation 100 08/10/22 22:55 If not protocol: Oxygen Flow, liters/minute 0 08/10/22 22:55 - Procedures OB Procedure Performed: NST Diagnosis/Indication for NST: Decreased movement NST Procedure: NST Procedure Start Time 15:00 Stop Time 15:30 - Plan Plan: Krystle presents today with her friend with concerns for dehydration, vomiting, and lower back pain. In combination with decreased movement at 24wks gestation. She denies vaginal bleeding or leakage of fluid. She denies contractions. She reports what she found concerning was that she had back pain in combination with decreased movement. She denies urinary symptoms. She reports her bowel movements for the past several days have been diarrhea. She has not been able to keep much fluids down in the past 48 hours. She states she has maybe consumed 32 ounces over the past 3 days and has also eaten very little. NST reactive. FHR baseline 140s, moderate variability, +accels, no decels No contractions appreciated via tocometry. Zofran 4mg IVP given 1 Liter of LR given IV over 1 hour Pt reports improvement. UA neg CBC WNL CMP WNL Pt released home with precautions. Rx for zofran 4mg to take q 4hr prn nausea provided. Reviewed warning s/sx and when to present. F/u with RTC visit as scheduled. Pt verbalized understanding and agrees to above plan. She denies further questions or concerns at this time. FINAL DIAGNOSIS: Nausea and vomiting in , second trimester
== END 2022-08-11 00:25 | disposition home or self-care (01) ==
LOC: WFO 20:20 → FBP 20:23 → WFO 08-11 00:25
PROVIDERS: ATTEND Nurse Practitioner Obstetrics & Gynecology
DX: O99.891 Other specified diseases and conditions complicating pregnancy (principal); R11.2 Nausea with vomiting, unspecified; M54.50 Low back pain, unspecified; O36.8120 Decreased fetal movements, second trimester, not applicable or unspecified; Z3A.24 24 weeks gestation of pregnancy
CPT/HCPCS: 36415; 80053; 81001; 85025; 96361; 96374; 96375; 99213; J2765; J7120; 87086

== ENCOUNTER 2022-08-25 20:17 | Outpatient (CLI) | payer MEDICAID ==
[2022-08-25 21:02] LABS: BILIRUBIN,URINE NEGATIVE (NEGATIVE); GLUCOSE, URINE (UA) NEGATIVE (NEGATIVE); KETONES,URINE (UA) NEGATIVE (NEGATIVE); LEUKOCYTE ESTERASE, URINE NEGATIVE (NEGATIVE); NITRITE,URINE NEGATIVE (NEGATIVE); OCCULT BLOOD,URINE NEGATIVE (NEGATIVE); PH,URINE 6.5 PH (5.0-7.5); PROTEIN,URINE NEGATIVE (NEGATIVE); UROBILINOGEN,URINE 0.2 (NORMAL) E.U./dL (NORMAL)
[2022-08-25 21:10] LABS: BACTERIA,URINE None Seen /HPF (None Seen); CLARITY,URINE CLEAR (CLEAR); RBC,URINE None Seen /HPF (0-5); SQUAMOUS EPITHELIAL CELL,UR RARE Squamous (<= Few); WBC,URINE 0-3 /HPF (0-5)
[2022-08-25 21:20] LABS: BASOPHILS % (AUTO) 0.5 %; EOSINOPHILS # (AUTO) 0.2 10^3/uL (0.0-0.7); EOSINOPHILS % (AUTO) 2.2 %; HCT - HEMATOCRIT 29.3 % (37.0-47.0); HGB - HEMOGLOBIN 10.5 g/dL (12.0-16.0); MEAN CORPUSCULAR HEMOGLOBIN 31.3 pg (27.0-31.0); MEAN CORPUSCULAR HGB CONC 35.8 g/dL (32.0-36.0); MEAN CORPUSCULAR VOLUME 87.5 fL (81.0-99.0); MEAN PLATELET VOLUME 9.8 fL (7.9-10.8); MONOCYTES # (AUTO) 0.9 10^3/uL (0.0-1.0); MONOCYTES % (AUTO) 12.2 %; NEUTROPHILS # (AUTO) 4.3 10^3/uL (1.5-6.6); NEUTROPHILS % (AUTO) 57.8 %; PLT - PLATELET COUNT 194 10^3/uL (130-450); RED BLOOD COUNT 3.35 10^6/uL (4.20-5.40); RED CELL DISTRIBUTION WIDTH 12.9 % (12.0-15.0); WHITE BLOOD COUNT 7.4 x10^3/uL (4.8-10.8)
[2022-08-25 21:32] LABS: ALBUMIN 3.2 g/dL (3.2-5.5); ALBUMIN/GLOBULIN RATIO 1.1 (1.0-2.2); BILIRUBIN,TOTAL 0.9 mg/dL (0.2-1.0); CALCIUM 9.4 mg/dL (8.5-10.3); CREATININE 0.4 mg/dL (0.4-1.0); POTASSIUM 3.5 mmol/L (3.5-5.0); TOTAL PROTEIN 6.2 g/dL (6.7-8.2)
--- NOTE | 2022-08-25 21:47 | PROVIDER PROGRESS NOTE ---
- HPI Chief Complaint: Labor Current : Vital Signs Temperature 36.8 C 08/25/22 20:40 Heart Rate 95 08/25/22 20:40 Respiratory Rate 20 08/25/22 20:40 Blood Pressure 111/61 08/25/22 20:40 O2 Saturation 100 08/25/22 20:40 Temperature 36.8 C 08/25/22 20:40 Heart Rate 95 08/25/22 20:40 Respiratory Rate 20 08/25/22 20:40 Blood Pressure 111/61 08/25/22 20:40 O2 Saturation 100 08/25/22 20:40 If not protocol: Oxygen Flow, liters/minute - Procedures OB Procedure Performed: Other NST Procedure: NST Procedure Start Time 15:00 Stop Time 15:30 - Plan Plan: S: Krystle presents to [facility] with c/o generalized back pain that is worse on the right side and radiates on both sides to the front of her lower abdomen. She reports the pain is constant and sharp and rates it 8-9/10 on a pain scale. She feels the intensity of the pain fluctuates slightly but overall it is constantly there and severe. She denies vaginal bleeding or leakage of fluid. She reports a steady increase in clearish yellow discharge which she feels is normal for her and she denies any associated itching, burning or foul odor. She reports +FM. She denies urinary symptoms. She reports regular bowel movements and denies constipation or diarrhea. She denies fever or chills but states she has generally felt fatigued for the duration of today. 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 She has not had intercourse in the past 24 hours. She states she does lift 25lb boxes at work but feels like she uses proper body mechanics. She does feel the pain is worse when she is working. She also lifts her 45lb son up and down flights of stairs multiple times daily. She does have a history of contractions without delivery at approximately 32 weeks with her first . O: FHR 140s via bedside doppler Tocometry appreciates 2 contractions total approximately 18 minutes apart. Pt remains talking through contractions. Abdomen diffusely tender in addition to right lower flank tenderness. Heart RRR w/o M/G/R, lungs CTAB, abdomen gravid and soft. Bilateral LE's no edema. Transvaginal cervical length: 3.2cm ELIS 13.1cm FFN collected: not sent secondary to cervical length being >3cm Vaginitis panel collected - negative UA: negative CBC: WNL with the exception of anemia complicating . She has not been taking her prescribed PO iron supplementation CMP: WNL Assessment: 22yo )1 @ 26.3wks gestation lower back and abdominal pain R/o labor Suspect musculoskeletal in origin Anemia complicating , second trimester. Plan: Strongly encouraged initiation of PO FeSO4 bid secondary to anemia. Encouraged use of maternity support belt for regular use, especially when working. Reviewed weight limit restrictions and maximum weight is 25lbs. Pt has emergency contact information. Follow up as scheduled for routine care. Reviewed warning s/sx and when to present Pt verbalized understanding and agrees to above plan. She denies further questions or concerns at this time. FINAL DIAGNOSIS: False labor <37wks gestation Back pain in Anemia complicating
[2022-08-25 22:59] VITALS: BP 117/77
[2022-08-25 23:17] LABS: BACTERIAL VAGINOSIS DNA NEGATIVE (NEGATIVE); CANDIDA GLABRATA DNA NEGATIVE (NEGATIVE); CANDIDA GROUP DNA NEGATIVE (NEGATIVE); CANDIDA KRUSEI DNA NEGATIVE (NEGATIVE); TRICHOMONAS VAGINALIS DNA NEGATIVE (NEGATIVE)
--- NOTE | 2022-08-26 00:45 | Ultrasound Report ---
PROCEDURE: OB Limited INDICATIONS: 26 W3D h/o preg contrac OUTSIDE/PRIOR DATING DATA: Last menstrual period (LMP): 02/15/2022. LMP-based estimated date of delivery (IVAN): 11/21/2022. First dating scan (date and location): 04/06/2022. Estimated date of delivery (IVAN) from first dating scan: 11/27/2022. TECHNIQUE: Real-time scanning was performed of the fetus, with image documentation. COMPARISON: 07/16/2022, . FINDINGS: A single living intrauterine gestation is present. Presentation: Breech Placenta: Placental position is posterior fundal, without previa. Amniotic fluid index: 13.4 cm, within normal limits for gestational age. Largest pocket measures 4.5 cm. heart rate: 1:30 beats per minutes. Maternal cervical canal: 3.2 cm long and appears closed; normal length is 2.5 cm or more. Estimated gestational age from initial scan: 36 weeks 4 days. A nuchal cord was noted. IMPRESSION: 1. Single living intrauterine in breech presentation demonstrated. 2. Cervix appears closed and normal in length. 3. Nuchal cord noted. Reviewed by: Jasmeet De Los Santos MD on 08/26/2022 12:44 AM PDT Approved by: Jasmeet De Los Santos MD on 08/26/2022 12:44 AM PDT Station ID: [id number]
== END 2022-08-25 23:00 | disposition home or self-care (01) ==
LOC: WFO 20:17 → FBP 20:23 → WFO 23:00
PROVIDERS: ATTEND Nurse Practitioner Obstetrics & Gynecology
DX: O47.02 False labor before 37 completed weeks of gestation, second trimester (principal); O99.891 Other specified diseases and conditions complicating pregnancy; M54.50 Low back pain, unspecified; O99.012 Anemia complicating pregnancy, second trimester; Z3A.26 26 weeks gestation of pregnancy
CPT/HCPCS: 36415; 80053; 81001; 81514; 85025; 99214

== ENCOUNTER 2022-09-06 10:12 | Outpatient (CLI) | payer MEDICAID ==
[2022-09-06] MEDS ORDERED: FERRIC GLUCONATE 125 MG in SODIUM CHLORIDE 0.9% 100ML 100 ML IV ONE (11:00)
[2022-09-06 11:26] VITALS: BP 112/63
== END 2022-09-06 11:55 | disposition home or self-care (01) ==
LOC: WFO 10:12 → FBP 10:14 → WFO 11:55
PROVIDERS: ATTEND Nurse Practitioner Obstetrics & Gynecology
DX: O99.013 Anemia complicating pregnancy, third trimester (principal); Z3A.00 Weeks of gestation of pregnancy not specified
CPT/HCPCS: 96365; 96366; J2916

== ENCOUNTER 2022-09-10 15:45 | Outpatient (CLI) | payer MEDICAID ==
[2022-09-10 17:10] LABS: HCT - HEMATOCRIT 32.9 % (37.0-47.0); HGB - HEMOGLOBIN 11.4 g/dL (12.0-16.0); MEAN CORPUSCULAR HEMOGLOBIN 31.1 pg (27.0-31.0); MEAN CORPUSCULAR HGB CONC 34.7 g/dL (32.0-36.0); MEAN CORPUSCULAR VOLUME 89.6 fL (81.0-99.0); MEAN PLATELET VOLUME 9.4 fL (7.9-10.8); RED BLOOD COUNT 3.67 10^6/uL (4.20-5.40); RED CELL DISTRIBUTION WIDTH 13.1 % (12.0-15.0); WHITE BLOOD COUNT 6.8 x10^3/uL (4.8-10.8)
== END 2022-09-10 15:46 | disposition home or self-care (01) ==
LOC: LAB 15:45
PROVIDERS: ATTEND Nurse Practitioner Obstetrics & Gynecology
DX: Z36.9 Encounter for antenatal screening, unspecified (principal)
CPT/HCPCS: 36415; 82950; 85027

== ENCOUNTER 2022-09-15 08:15 | Outpatient (CLI) | payer MEDICAID ==
[2022-09-15 09:06] LABS: GTT GLUCOSE,FASTING 85 mg/dL (70-100)
== END 2022-09-15 08:16 | disposition home or self-care (01) ==
LOC: LAB 08:15
PROVIDERS: ATTEND Nurse Practitioner Obstetrics & Gynecology
DX: O99.810 Abnormal glucose complicating pregnancy (principal)
CPT/HCPCS: 36415; 82951; 82952

== ENCOUNTER 2022-09-25 23:08 | Outpatient (CLI) | payer MEDICAID ==
[2022-09-26 00:12] LABS: RUPTURE OF MEMBRANES PLUS NEGATIVE (NEGATIVE)
[2022-09-26] MEDS ORDERED: LACTATED RINGERS 1,000 ML IV ONE (00:19)
--- NOTE | 2022-09-26 02:28 | Labor Flowsheet ---
Labor Flowsheet Datetime Report Generated by CPN: 09/26/2022 02:28 Datetime: 09/26/2022 01:51 VITAL SIGNS NBP Sys/Ngoc/Mean (mmHg): 113 : 76 : 83 Pulse: 85 Datetime: 09/26/2022 01:50 SpO2 (%): 98
[2022-09-26 02:43] VITALS: BP 113/76
--- NOTE | 2022-09-27 16:21 | PROVIDER PROGRESS NOTE ---
- HPI Chief Complaint: Labor Current : Current EDU 11/28/22 Gestation 31 Weeks and 0 Days 3 Para 1 Vital Signs Temperature 36.9 C 09/26/22 00:03 Heart Rate 89 09/26/22 00:03 Respiratory Rate 18 09/26/22 00:03 Blood Pressure 132/81 H 09/26/22 00:03 Temperature 36.9 C 09/26/22 02:40 Heart Rate 85 09/26/22 02:40 Respiratory Rate 18 09/26/22 02:40 Blood Pressure 113/76 09/26/22 02:40 O2 Saturation If not protocol: Oxygen Flow, liters/minute - Procedures OB Procedure Performed: NST Diagnosis/Indication for NST: labor NST Procedure: NST Procedure Start Date 09/25/22 Start Time 23:50 Stop Time 00:20 Vibroacoustic Stimulation Used No Patient States Movement Yes - Plan Plan: HPI: Krystle presents to [facility] with c/o vaginal leakage of fluid. She reports hearing a "popping" sound while she was sitting on the toilet and followed by a trickle of warm, clear fluid running down her leg. She states she has been very active throughout the day today as it was her baby shower. She had mild contractions intermittently throughout the day today and has admittedly not consumed much water. She reports feeling the leaking again a few minutes later and her mom encouraged her to come in and be evaluated. She denies vaginal bleeding and reports +FM. She presents today with her friend Yaneth and FOB (not partner) Eduar. NST reactive. FHR baseline 150s, moderate variability, + accels, no decels Contractions palpate mild occasionally with soft resting tone. ROM+ - negative 1 Liter of LR administered over 1 hour and cramping contractions resolved. Assessment: 22yo @ 30.6wks gestation by LMP c/w 6.3wk U/S False labor <37wks gestation FHR Category I Plan: Pt feels reassured. She is released home with precautions. She has emergency contact number. Pt verbalized understanding and agrees to above plan. She denies further questions or concerns at this time. FINAL DIAGNOSIS: False labor <37wks gestation, third trimester
== END 2022-09-26 02:15 | disposition home or self-care (01) ==
LOC: WFO 23:08 → FBP 23:14 → WFO 09-26 02:15
PROVIDERS: ATTEND Nurse Practitioner Obstetrics & Gynecology
DX: O47.03 False labor before 37 completed weeks of gestation, third trimester (principal); O99.891 Other specified diseases and conditions complicating pregnancy; N89.8 Other specified noninflammatory disorders of vagina; Z3A.30 30 weeks gestation of pregnancy
CPT/HCPCS: 59025; 84112; 96360; 99213; J7120

== ENCOUNTER 2022-10-09 09:31 | Emergency (ER) | payer MEDICAID ==
--- NOTE | 2022-10-09 10:34 | ED Physician Documentation ---
PD HPI HEENT - Stated complaint Stated Complaint: LT EAR PX/BLEEDING - Chief complaint Chief Complaint: Heent - History obtained from History obtained from: Patient - History of Present Illness Timing - onset: How many days ago Timing - duration: Days (has had some congestion and runny nose for several days, then yesterday having pain left ear which worsened into this morning. Lying in bed this morning, noted fluidf rom ear and check it to be blood.) Timing - details: Gradual onset, Still present Review of Systems Constitutional: denies: Fever, Chills Throat: denies: Sore throat Respiratory: denies: Cough PD PAST MEDICAL HISTORY - Past Medical History Cardiovascular: None Respiratory: None Neuro: Migraines Endocrine/Autoimmune: None GI: None [employer]: None : None HEENT: None Psych: Depression, Anxiety, Obsessive compulsive disorder Musculoskeletal: None Derm: None - Past Surgical History Past Surgical History: No General: Other - Present Medications Home Medications: Ambulatory Orders Medication Instructions Recorded Confirmed Escitalopram [Lexapro] 10 mg PO DAILY 05/17/22 06/28/22 Pnv No.95/Ferrous Fum/Folic AC 1 each PO DAILY 05/17/22 06/28/22 [ Tablet] Amoxicillin 500 mg PO TID #21 cap 10/09/22 Cetirizine [ZyrTEC] 10 mg PO BID #20 tablet 10/09/22 Neomycin/Polymyx/Hc Otic Drops 4 drops OT TID 5 Days #10 ml 10/09/22 [Cortisporin Ear Susp] - Allergies Allergies/Adverse Reactions: Allergies Allergy/AdvReac Type Severity Reaction Status Date / Time No Known Drug Allergies Allergy Verified 10/09/22 09:38 - Social History Does the pt smoke?: No Smoking Status: Never smoker Does the pt drink ETOH?: No Does the pt have substance abuse?: No - Immunizations Immunizations are current?: Yes - POLST Patient has POLST: No PD ED PE NORMAL - Vitals Vital signs reviewed: Yes - General General: Alert and oriented X 3, No acute distress, Well developed/nourished - HEENT HEENT: Pharynx benign. No: Ears normal (right ear and canal are normal with just some serous otitis mildly. Left ear canal with redness and swelling medial ear canal. No signs of bleeding source. The TM itself is also red/swelling and fluid behind. 10 o'clock position of the eardrum shows redness and small air bubble behind. No bleeding. ) - Neck Neck: Supple, no meningeal sign, No adenopathy Results - Vitals Vitals: Vital Signs - 24 hr 10/09/22 10/09/22 09:32 11:02 Temperature 36.6 C Heart Rate 96 92 Respiratory 16 16 Rate Blood Pressure 114/74 118/80 O2 Saturation 97 99 Oxygen O2 Source Room air PD Medical Decision Making - ED course Complexity details: considered differential (she has ear infection, presume relates to underlying allergies, but infection now. She is pregnanct 33 weeks, but easily can go with safe meds. ), d/w patient Departure - Departure Disposition: Home, Self Care Clinical Impression: Cellulitis of left ear canal Otitis media Qualifiers: Otitis media type: suppurative Chronicity: acute Laterality: left Recurrence: non-recurrent Spontaneous tympanic membrane rupture: with spontaneous rupture Qualified Code(s): H66.012 - Acute suppurative otitis media with spontaneous rupture of ear drum, left ear Condition: Stable Record reviewed to determine appropriate education?: Yes Instructions: ED Otitis Media Acute Adult Follow-Up: Amy Lopez CNM, [employer] [Primary Care Provider] - Prescriptions: Amoxicillin 500 mg PO TID #21 cap Neomycin/Polymyx/Hc Otic Drops [Cortisporin Ear Susp] 4 drops OT TID 5 Days #10 ml Cetirizine [ZyrTEC] 10 mg PO BID #20 tablet Comments: Your eardrum and the tissue around the eardrum in the canal are red inflamed and swollen. I do not see the obvious source of the bleeding. There is some rawness in the canal that may have bled. Otherwise it looks like a small tearing at the edge of the eardrum just at 1 small corner. It is not fully ruptured per se per se. I would treat this with amoxicillin antibiotic. The underlying process was likely allergies and fluid buildup so cetirizine antihistamine twice daily for several days and then once daily for a week. You can use antibiotic eardrops as well on that side as directed. This would not have any absorption into the system. The cetirizine and amoxicillin are safe in has had the eardrops. Tylenol every 4-6 hours if needed for pains. Recheck if not improving well over the next several days. I sent your prescriptions to your preferred pharmacy, [facility] in [place]. Discharge Date/Time: 10/09/22 11:11
[2022-10-09] MEDS ORDERED: AMOXICILLIN 250 MG CAPSULE PO STA (10:57)
[2022-10-09 11:03] VITALS: BP 118/80
== END 2022-10-09 11:11 | disposition home or self-care (01) ==
LOC: ED 09:31
DX: H66.012 Acute suppurative otitis media with spontaneous rupture of ear drum, left ear (principal); H60.12 Cellulitis of left external ear
CPT/HCPCS: 99283; A9270

== ENCOUNTER 2022-10-14 13:37 | Outpatient (CLI) | payer MEDICAID ==
[2022-10-14 13:52] VITALS: BP 112/78
[2022-10-14 14:10] LABS: BASOPHILS % (AUTO) 0.3 %; EOSINOPHILS % (AUTO) 0.7 %; HCT - HEMATOCRIT 31.2 % (37.0-47.0); HGB - HEMOGLOBIN 11.3 g/dL (12.0-16.0); LYMPHOCYTES # (AUTO) 1.1 10^3/uL (1.5-3.5); LYMPHOCYTES % (AUTO) 18.4 %; MEAN CORPUSCULAR HEMOGLOBIN 31.5 pg (27.0-31.0); MEAN CORPUSCULAR HGB CONC 36.2 g/dL (32.0-36.0); MEAN CORPUSCULAR VOLUME 86.9 fL (81.0-99.0); MEAN PLATELET VOLUME 9.5 fL (7.9-10.8); MONOCYTES # (AUTO) 0.5 10^3/uL (0.0-1.0); NEUTROPHILS # (AUTO) 4.2 10^3/uL (1.5-6.6); NEUTROPHILS % (AUTO) 71.4 %; PLT - PLATELET COUNT 172 10^3/uL (130-450); RED BLOOD COUNT 3.59 10^6/uL (4.20-5.40); WHITE BLOOD COUNT 5.9 x10^3/uL (4.8-10.8)
[2022-10-14 14:11] LABS: BILIRUBIN,URINE NEGATIVE (NEGATIVE); GLUCOSE, URINE (UA) NEGATIVE (NEGATIVE); KETONES,URINE (UA) NEGATIVE (NEGATIVE); LEUKOCYTE ESTERASE, URINE NEGATIVE (NEGATIVE); NITRITE,URINE NEGATIVE (NEGATIVE); OCCULT BLOOD,URINE NEGATIVE (NEGATIVE); PROTEIN,URINE NEGATIVE (NEGATIVE); UROBILINOGEN,URINE 0.2 (NORMAL) E.U./dL (NORMAL)
[2022-10-14 14:12] LABS: CLARITY,URINE CLEAR (CLEAR)
--- NOTE | 2022-10-14 15:02 | PROVIDER PROGRESS NOTE ---
- HPI Current : Vital Signs Temperature 97.7 F 10/14/22 13:48 Heart Rate 104 H 10/14/22 13:48 Respiratory Rate 16 10/14/22 13:48 Blood Pressure 112/78 10/14/22 13:48 O2 Saturation 100 10/14/22 13:48 Temperature 97.7 F 10/14/22 14:05 Heart Rate 104 H 10/14/22 13:48 Respiratory Rate 16 10/14/22 13:48 Blood Pressure 112/78 10/14/22 13:48 O2 Saturation 100 10/14/22 13:48 If not protocol: Oxygen Flow, liters/minute - Procedures NST Procedure: NST Procedure Start Time 23:50 Stop Time 00:20
--- NOTE | 2022-10-15 09:52 | PROVIDER PROGRESS NOTE ---
- HPI Chief Complaint: Pain, non-labor Current : Current EDU 11/27/22 Gestation 33 Weeks and 5 Days 3 Para 1 Vital Signs Temperature 36.5 C 10/14/22 13:48 Heart Rate 104 H 10/14/22 13:48 Respiratory Rate 16 10/14/22 13:48 Blood Pressure 112/78 10/14/22 13:48 O2 Saturation 100 10/14/22 13:48 Temperature 36.5 C 10/14/22 14:05 Heart Rate 104 H 10/14/22 13:48 Respiratory Rate 16 10/14/22 13:48 Blood Pressure 112/78 10/14/22 13:48 O2 Saturation 100 10/14/22 13:48 If not protocol: Oxygen Flow, liters/minute - Procedures OB Procedure Performed: NST Diagnosis/Indication for NST: Other NST Procedure: NST Procedure Start Date 10/14/22 Start Time 13:45 Stop Time 14:20 Vibroacoustic Stimulation Used No Patient States Movement Yes - Plan Plan: Krystle presents to [facility] with c/o back and hip pain that she rates 8/10 on a pain scale. She is talking through the discomfort and she states it is constant pain that seems to be exacerbated by persistent movement or standing. She reports the pain does not feel like contractions but she wanted to be sure. She denies vaginal bleeding or leakage of fluid. She is supported by her friend Yaneth today. She states she has been trying her best to drink more water but if she drinks more than 70 ounces in a day she feels very nauseous. She denies urinary symptoms. She reports normal bowel movements. She did notice some increased mucousy discharge that resembled her mucuous plug that started last week. She denies associated itching, burning or foul odor. NST reactive. FHR baseline 150s, moderate variability, + accels, no decels Contractions palpate mild occasionally with soft resting tone. UA Neg CBC WNL Reviewed normal discomforts of . Encouraged consistent use of maternity support belt. Discussed patient care, massage and accupuncture. Encouraged increased fluid intake and rest. Reviewed warning s/sx and when to present. Pt has emergency contact number. Pt released home with precautions. She verbalized understanding and agrees to above plan. She denies further questions or concerns at this time. FINAL DIAGNOSIS: Back pain in False labor <37wks gestation, third trimester
== END 2022-10-14 15:02 | disposition home or self-care (01) ==
LOC: WFO 13:37 → FBP 13:38 → WFO 15:02
PROVIDERS: ATTEND Nurse Practitioner Obstetrics & Gynecology
DX: O47.03 False labor before 37 completed weeks of gestation, third trimester (principal); Z3A.33 33 weeks gestation of pregnancy
CPT/HCPCS: 36415; 59025; 81001; 81003; 85025; 87086; 99215

== ENCOUNTER 2022-10-21 21:06 | Outpatient (CLI) | payer MEDICAID ==
[2022-10-21 21:20] VITALS: BP 127/92
[2022-10-21] MEDS: LACTATED RINGERS 1,000 ML IV STA (21:50)
--- NOTE | 2022-10-22 01:12 | PROVIDER PROGRESS NOTE ---
- HPI Chief Complaint: Vaginal bleeding Current : Current EDU 11/27/22 Gestation 34 Weeks and 5 Days 4 Para 1 Vital Signs Temperature 36.4 C L 10/21/22 21:16 Heart Rate 91 10/21/22 21:16 Respiratory Rate 18 10/21/22 21:16 Blood Pressure 127/92 H 10/21/22 21:16 O2 Saturation 100 10/21/22 21:16 Temperature 36.4 C L 10/21/22 21:19 Heart Rate 92 10/21/22 21:19 Respiratory Rate 18 10/21/22 21:19 Blood Pressure 127/92 H 10/21/22 21:19 O2 Saturation 100 10/21/22 21:16 If not protocol: Oxygen Flow, liters/minute - Procedures OB Procedure Performed: NST Diagnosis/Indication for NST: Other NST Procedure: NST Procedure Start Date 10/21/22 Start Time 21:12 Stop Time 21:53 Vibroacoustic Stimulation Used No Patient States Movement Yes - Plan Plan: Krystle presents today with her mom with concerns for vaginal spotting when she wiped after going to the bathroom. She states she has felt intermittent cramping but denies contractions. She also reports increased pelvic pressure. She reports +FM and denies leakage of fluid. She has her cervix checked in the office yesterday at her routine visit. She denies fever or dysuria. She reports normal bowel movements. NST reactive. FHR baseline 140s, moderate variability, + accels, no decels Mild uterine irritability noted on tocometry 1 liter of LR administered over 1 hour via IV. SVE 2/50/-3, posterior and vertex with intact membranes. Pt released home with precautions. She has emergency contact number. Follow up as scheduled for routine care. Pt verbalized understanding and denies further questions or concerns at this time. FINAL DIAGNOSIS: False labor <37wks gestation
== END 2022-10-21 23:09 | disposition home or self-care (01) ==
LOC: WFO 21:06 → FBP 21:08 → WFO 23:09
PROVIDERS: ATTEND Nurse Practitioner Obstetrics & Gynecology
DX: O47.03 False labor before 37 completed weeks of gestation, third trimester (principal); Z3A.34 34 weeks gestation of pregnancy
CPT/HCPCS: 59025; 99214; J7120; 99213

== ENCOUNTER 2022-11-24 07:49 | Inpatient (IN) | payer MEDICAID ==
[2022-11-24] MEDS ORDERED: LACTATED RINGERS 1,000 ML IV PRN (08:34)
[2022-11-24] MEDS ORDERED: OXYTOCIN/SODIUM CHLORIDE 500 ML IV PRN (08:34)
[2022-11-24] MEDS ORDERED: METHYLERGONOVINE 0.2 MG/ML VIAL IM PRN (08:34)
[2022-11-24] MEDS ORDERED: LABETALOL 20 MG/4 ML SYRINGE IVP PRN ×3 (08:34)
[2022-11-24] MEDS ORDERED: hydrALAZINE INJ 20 MG/ML VIAL IVP PRN ×2 (08:34)
[2022-11-24] MEDS ORDERED: miSOPROStoL 200 MCG TABLET BC PRN (08:34)
[2022-11-24] MEDS ORDERED: CARBOPROST TROMETHAMINE 250 MCG/ML AMP IM PRN (08:34)
[2022-11-24] MEDS ORDERED: TERBUTALINE 1 MG/ML VIAL SUBQ PRN (08:34)
[2022-11-24] MEDS ORDERED: miSOPROStoL 200 MCG TABLET PR PRN (08:34)
[2022-11-24] MEDS ORDERED: OXYTOCIN 10 UNIT/ML VIAL IM PRN (08:34)
[2022-11-24] MEDS ORDERED: TRANEXAMIC ACID IN NACL 1,000 MG/100 ML BAG IV PRN (08:34)
[2022-11-24] MEDS ORDERED: lidocaine 1% 20 ML MDV ID PRN (08:34)
[2022-11-24] MEDS ORDERED: SODIUM CHLORIDE FLUSH 0.9% 10 ML SYRINGE IVP PRN (08:34)
[2022-11-24] MEDS ORDERED: NIFEdipine 10 MG CAPSULE PO PRN (08:34)
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
[2022-11-24] MEDS ORDERED: SODIUM CHLORIDE FLUSH 0.9% 10 ML SYRINGE IVP SCH (09:00)
[2022-11-24 09:07] LABS: BASOPHILS % (AUTO) 0.5 %; EOSINOPHILS % (AUTO) 0.5 %; HCT - HEMATOCRIT 32.1 % (37.0-47.0); HGB - HEMOGLOBIN 10.8 g/dL (12.0-16.0); LYMPHOCYTES # (AUTO) 1.2 10^3/uL (1.5-3.5); LYMPHOCYTES % (AUTO) 20.6 %; MEAN CORPUSCULAR HGB CONC 33.6 g/dL (32.0-36.0); MEAN CORPUSCULAR VOLUME 86.3 fL (81.0-99.0); MEAN PLATELET VOLUME 10.5 fL (7.9-10.8); MONOCYTES # (AUTO) 0.5 10^3/uL (0.0-1.0); NEUTROPHILS % (AUTO) 70.1 %; PLT - PLATELET COUNT 164 10^3/uL (130-450); RED BLOOD COUNT 3.72 10^6/uL (4.20-5.40); RED CELL DISTRIBUTION WIDTH 12.5 % (12.0-15.0); WHITE BLOOD COUNT 5.7 x10^3/uL (4.8-10.8)
[2022-11-24] MEDS ORDERED: OXYTOCIN/SODIUM CHLORIDE 500 ML IV SCH (12:00)
[2022-11-24] MEDS ORDERED: LACTATED RINGERS 1,000 ML IV SCH (12:00)
[2022-11-24] MEDS ORDERED: ROPIVACAINE 0.2% 200 MG/100 ML BAG EP ONE (14:38)
[2022-11-24] MEDS ORDERED: NALBUPHINE 10 MG/ML AMP IVP PRN (15:08)
[2022-11-24] MEDS ORDERED: diphenhydrAMINE INJ 50 MG/ML VIAL IVP PRN (15:08)
[2022-11-24] MEDS ORDERED: METOCLOPRAMIDE 10 MG/2 ML VIAL IVP PRN (15:08)
[2022-11-24] MEDS ORDERED: ONDANSETRON 4 MG/2 ML VIAL IVP PRN (15:08)
[2022-11-24] MEDS ORDERED: NALOXONE 0.4 MG/ML VIAL IVP PRN (15:08)
[2022-11-24] MEDS ORDERED: ROPIVACAINE 0.2% 200 MG/100 ML BAG EP PRN (15:08)
[2022-11-24] MEDS ORDERED: ePHEDrine 50 MG/ML VIAL IVP PRN (15:08)
--- NOTE | 2022-11-24 15:13 | ANESTHESIA ---
Pre-Anesthesia VS, & Labs - Diagnosis active labor - Procedure labor epidural Vital Signs: Temp Pulse Resp BP Pulse Ox O2 Flow Rate 36.8 C 92 18 132/89 H 11/24/22 08:30 11/24/22 08:30 11/24/22 08:30 11/24/22 08:30 Height: 5 ft 4 in - NPO Other - Is Patient ?: Yes - Lab Results Current Lab Results: Laboratory Tests 11/24/22 08:59: WBC 5.7, RBC 3.72 L, Hgb 10.8 L, Hct 32.1 L, MCV 86.3, MCH 29.0, MCHC 33.6, RDW 12.5, Plt Count 164, MPV 10.5, Neut # (Auto) 4.0, Lymph # (Auto) 1.2 L, [place] # (Auto) 0.5, Eos # (Auto) 0.0, Baso # (Auto) 0.0, Absolute Nucleated RBC 0.00, Nucleated RBC % 0.0 11/24/22 08:59: Blood Type A POSITIVE, Antibody Screen NEGATIVE Fish Bones: 11/24/22 08:59 Home Medications and Allergies Active Medications Acetaminophen (Acetaminophen 500 Mg Tablet) 1,000 mg PO Q8H PRN PRN Reason: Mild Pain or Fever>38C(100.4F) Carboprost Tromethamine (Carboprost Tromethamine 250 Mcg/Ml Amp) 250 mcg IM .ONCE PRN PRN Reason: Hemorrhage Hydralazine HCl (Hydralazine Inj 20 Mg/Ml Vial) 5 - 10 mg IVP Q20M PRN; Protocol PRN Reason: SBP> or= 160 OR DBP> or= 110 Hydralazine HCl (Hydralazine Inj 20 Mg/Ml Vial) 10 mg IVP .ONCE PRN; Protocol PRN Reason: SBP> or= 160 OR DBP> or= 110 Lactated Ringer's (Lr) 500 mls @ 999 mls/hr IV PRN PRN PRN Reason: PER PHYSICIAN ORDER Oxytocin/Sodium Chloride (Pitocin/Sodium Chloride) 500 mls @ 999 mls/hr IV PRN PRN; Protocol PRN Reason: POST- HEMORR PREVENTION Tranexamic Acid (Tranexamic 1,000 Mg/100ml-Nacl) 1,000 mg in 100 mls @ 600 mls/hr IV Q30M PRN PRN Reason: EBL >1200mL and within 3hr Oxytocin/Sodium Chloride (Pitocin/Sodium Chloride) 500 mls @ 2 mls/hr IV TITR JAYNE; Protocol Last Titration: 11/24/22 13:30 Dose: 6 milliunit/min, 6 mls/hr Lactated Ringer's (Lr) 1,000 mls @ 125 mls/hr IV .Q8H JAYNE Last Admin: 11/24/22 12:29 Dose: 125 mls/hr Labetalol HCl (Labetalol 20 Mg/4 Ml Syringe) 20 - 80 mg IVP Q10M PRN; Protocol PRN Reason: SBP> or= 160 OR DBP> or= 110 Labetalol HCl (Labetalol 20 Mg/4 Ml Syringe) 20 mg IVP .ONCE PRN; Protocol PRN Reason: SBP> or= 160 OR DBP> or= 110 Labetalol HCl (Labetalol 20 Mg/4 Ml Syringe) 20 - 40 mg IVP Q10M PRN; Protocol PRN Reason: SBP> or= 160 OR DBP> or= 110 Lidocaine HCl (Lidocaine 1% 20 Ml Mdv) 20 ml ID .ONCE PRN PRN Reason: PERINEAL REPAIR Stop: 11/27/22 08:34 Methylergonovine Maleate (Methylergonovine 0.2 Mg/Ml Vial) 0.2 mg IM .ONCE PRN PRN Reason: Hemorrhage Misoprostol (Misoprostol 200 Mcg Tablet) 600 mcg BC .ONCE PRN PRN Reason: Hemorrhage Misoprostol (Misoprostol 200 Mcg Tablet) 800 mcg NM .ONCE PRN PRN Reason: Hemorrhage Nifedipine (Nifedipine 10 Mg Capsule) 10 - 20 mg PO Q20M PRN; Protocol PRN Reason: SBP> or= 160 OR DBP> or= 110 Oxytocin (Oxytocin 10 Unit/Ml Vial) 10 unit IM .ONCE PRN PRN Reason: Step One if no IV access. Sodium Chloride (Sodium Chloride Flush 0.9% 10 Ml Syringe) 10 ml IVP PRN PRN PRN Reason: NEEDED PER PROVIDER ORDERS Sodium Chloride (Sodium Chloride Flush 0.9% 10 Ml Syringe) 10 ml IVP Q8H JAYNE Terbutaline Sulfate (Terbutaline 1 Mg/Ml Vial) 0.25 mg SUBQ .ONCE PRN PRN Reason: Tachystole Escitalopram [Lexapro] 10 mg PO DAILY 05/17/22 Pnv No.95/Ferrous Fum/Folic AC [ Tablet] 1 each PO DAILY 05/17/22 Allergies/Adverse Reactions: Allergies Allergy/AdvReac Type Severity Reaction Status Date / Time No Known Drug Allergies Allergy Verified 10/09/22 09:38 Anes History & Medical History - Anesthetic History Anesthesia Complications: reports: No previous complications Family history of Anesthesia Complications: Denies Family history of Malignant Hyperthermia: Denies - Medical History Cardiovascular: reports: None Pulmonary: reports: None Gastrointestinal: reports: None Urinary: reports: None Neuro: reports: Migraines Musculoskeletal: reports: None Endocrine/Autoimmune: reports: None Blood Disorders: reports: None Skin: reports: None Smoking Status: Never smoker Psychosocial: reports: Other (see H&P) History of Cancer?: No - Surgical History General: reports: Other - Obstetrical History : 3 Parity: 1 Events: reports: None Complications: reports: None Exam General: Alert, Oriented x3, Cooperative Dental: WNL Mouth Openin Fingerbreadth Neck Mobility: Normal Mallampati classification: II Thyromental Distance: 4-6 cm Respiratory: Lungs clear Cardiovascular: Regular rate Plan Anesthesia Type: Epidural Consent for Procedure(s) Verified and Reviewed: Yes Code Status: Attempt Resuscitation ASA classification: 2-Mild systemic disease Is this case an emergency?: No
--- NOTE | 2022-11-24 16:44 | PROVIDER PROGRESS NOTE ---
Labor Progress Note - Uterine Monitoring Uterine Monitoring Mode: positive: External toco Contraction Frequency (min/apart): 2-3 Contraction Intensity: positive: Strong Uterine Resting Tone: positive: Soft - Monitoring Monitor Mode: positive: External ultrasound Heart Rate Baseline: 140 Heart Rate Variability: positive: Moderate (6-25 bmp) Accelerations: positive: Present, 15x15 Decelerations: positive: None Strip Review: positive: Category I - Vaginal Exam Dilation (in cm): 7 Effacement (%): 100 Station: -1 Cervical Position: Anterior - Labor Progress Note Labor Progress Note/Additional Text: S: Breathing through contractions and feeling increased pelvic pressure with contractions. She is requesting and epidural for pain management. She feels like she is having so much pressure on her bladder and having to urinate frequently. She has her entire family and friend support system present in the room for support. O: FHR baseline 140s, moderate variability, + accels, no decels Contractions palpate strong every 2-3 minutes with soft resting tone SVE 7/100/-1, anterior. Vertex. Pitocin @ 6 mU/mL A: 22yo @ 39.4wks gestation by LMP c/w 6.3wk U/S Active labor GBS neg FHR Category I P: Anesthesia present for placement of epidural for pain management per pt request. Continuous monitoring. Continue pitocin for labor augmentation with titration per protocol. Anticipate .
[2022-11-24] MEDS ORDERED: WITCH HAZEL/GLYCERIN 1 PAD TOP PRN (16:45)
[2022-11-24] MEDS ORDERED: HYDROCORTISONE 1% CREAM 28 GM TUBE PR PRN (16:45)
--- NOTE | 2022-11-24 16:56 | DELIVERY NOTE ---
Delivery Note - Labor Labor: positive: Augmented by oxytocin, Induced by ARM - Delivery Method Infant Delivery Method: positive: Spontaneous vaginal delivery - Presentation Presentation: positive: Vertex, LOP - left occiput posterior - Nuchal Cord Nuchal Cord: positive: None - Amniotic Fluid Description Amniotic Fluid Description: positive: Clear - Episiotomy Type Episiotomy Type: positive: None - Laceration Laceration: positive: None - Delivery Outcome Delivery Outcome: positive: Livebirth - : positive: Placed in direct skin contact with mother, Stimulated, Warmed, [place] used sex: positive: Male - Cord Cord: positive: 3 vessels, Other - Placenta Placenta: positive: Intact, Spontaneous - Estimated Blood Loss Estimated Blood Loss (in cc): 150 - Post Delivery Events Post Delivery Events: positive: No post delivery events - Delivery Comments (Free Text/Narrative) Delivery Comments (Free Text/Narrative): Labor: This 22yo @ 39.4wks gestation by LMP c/w 6.4wk U/S presented on 11/24/2022 for elective induction of labor. Cervix was 5/90/-2 posterior and vertex with intact membranes. AROM occurred at 0841 and was noted to be a small amount of clear fluid. Normal labor course. Pitocin administered for labor augmentation with titration per protocol and a maximum infusion rate of 6mU/mL. Epidural was placed per maternal request. Pt progressed to c/c/+2 @ 1551. : Normal SVB of viable male on 11/24/2022 @ 1605. No nuchal cord. The was placed on maternal abdomen, stimulated, dried and at that time it was noted the umbilical cord had evulsed and was immediately grasped by hand followed by placement of the umbilical cord clamp. Estimated blood loss 20mL. Apgars were 7/9 at 1 and 5 min respectively. Pitocin administered via IV for hemostasis. 3VC. Fundal massage and gentle cord traction applied for active management of the third stage. Placenta delivered spontaneously and intact at 1609. EBL 150mL. Fourth stage: Uterine fundus firm and there is no excessive bleeding. The perineum, vagina, and cervix were inspected and found to be intact. There was noted to be a superficial right labial area which was bleeding but surface level and topical silver nitrate applied. initiated. Family bonding well. Both mother and baby were left in stable condition.
[2022-11-24] MEDS: ACETAMINOPHEN 500 MG TABLET PO PRN (18:16)
[2022-11-24] MEDS: IBUPROFEN 800 MG TABLET PO SCH (18:17)
[2022-11-25] MEDS: IBUPROFEN 800 MG TABLET PO SCH ×3 (00:43→13:47)
[2022-11-25] MEDS: DOCUSATE SODIUM 100 MG CAPSULE PO SCH ×2 (00:45→08:42)
[2022-11-25] MEDS: ACETAMINOPHEN 500 MG TABLET PO PRN ×2 (05:46→12:49)
--- NOTE | 2022-11-25 12:37 | DISCHARGE SUMMARY ---
Discharge Summary - HOSPITAL COURSE Hospital Course: Date of Admission: 11/24/2022 Date of Discharge: 11/25/2022 Diagnosis on Admission: 1. 22yo @ 39.3wks gestation by LMP c/w 6.3wk U/S 2. Elective induction of labor 3. FHR Category I 4. GBS negative Diagnosis on Discharge: 1. 22yo PPD#1 s/p TSVB viable male 2. 3. Normal recovery Brief History: She is a patient of [facility] who presented on 11/24/2022 for elective induction of labor at 39.4wks gestation. AROM occurred for induction of labor with pitocin initiated for a labor augmentation and a maximum infusion rate of 6mU/mL. Epidural was placed per maternal request. She progressed to spontaneously deliver a viable male infant on 11/24/2022 at 1605 over intact perineum. Apgars were 7/9 at 1 and 5 minutes respectively. EBL 150mL. She has been doing well in her course. She is ambulating and t olerating a regular diet. She is urinating without difficulty and her lochia is normal. Her pain is well controlled with oral medications. She is without difficulty and she is bonding well with her baby. She will be discharged home today on day #1 with instructions to continue taking her vitamin while and to continue taking ibuprofen and tylenol over the counter as needed for pain management. She intends to follow up with myself at [facility] in 1 week or sooner if needed. She has been given precautions to call if she has any worsening fevers, chills, abdominal pain, increased vaginal bleeding or foul smelling vaginal lochia. Physical exam: Normocephalic, atraumatic. Heart RRR w/o M/G/R, lungs CTAB, perineum intact, light lochia rubra, bilateral LE's trace edema. FOB [place] is supportive at the bedside. - ALLERGIES Allergies/Adverse Reactions: Allergies Allergy/AdvReac Type Severity Reaction Status Date / Time No Known Drug Allergies Allergy Verified 10/09/22 09:38 - MEDICATIONS Home Medications: Ambulatory Orders Medication Instructions Recorded Confirmed Escitalopram [Lexapro] 10 mg PO DAILY 05/17/22 06/28/22 Pnv No.95/Ferrous Fum/Folic AC 1 each PO DAILY 05/17/22 06/28/22 [ Tablet] Amoxicillin 500 mg PO TID #21 cap 10/09/22 Cetirizine [ZyrTEC] 10 mg PO BID #20 tablet 10/09/22 Neomycin/Polymyx/Hc Otic Drops 4 drops OT TID 5 Days #10 ml 10/09/22 [Cortisporin Ear Susp] - LABS Result Diagrams: 11/24/22 08:59
--- NOTE | 2022-11-25 12:56 | Discharge Plan ---
Discharge Plan Problem Reviewed?: Yes Disposition: Home, Self Care Condition: Good Diet: Regular Activity Restrictions: No Restrictions Shower Restrictions: No Driving Restrictions: No Weight Bearing: Full Weight Instruction Topics: Vaginal After No Smoking: If you smoke, Please STOP! Call for help. Follow-up with: Amy Lopez CNM, ARNP [Provider Admit Priv/Credential] - 1 Week (Phone visit with Amy Lopez CNM/TAISHA on December 07 @ 3:15pm.)
[2022-11-25] MEDS ORDERED: LIDOCAINE 2%-EPI 1:100000 20 ML MDV SUBQ ONE (13:04)
[2022-11-25 13:58] VITALS: BP 132/84
--- NOTE | 2022-11-25 19:01 | Labor Flowsheet ---
Labor Flowsheet Datetime Report Generated by CPN: 11/25/2022 19:01 Datetime: 11/25/2022 13:50 VITAL SIGNS NBP Sys/Ngoc/Mean (mmHg): 132 : 84 : 96 Pulse: 56 Datetime: 11/24/2022 18:23 Membranes Ruptured Date/Time: 11/24/2022 08:41 Datetime: 11/24/2022 16:06 Medication Comments: PP Pit bolus Stage 2 Comments: Placenta Datetime: 11/24/2022 16:05 Stage of : Recovery Datetime: 11/24/2022 16:02 Patient Care Comments: 2nd bag LR Datetime: 11/24/2022 16:00 UTERINE ACTIVITY Monitor Mode: External Frequency (min): 1.5-2 Quality: Strong Duration (sec): 40-60 Pattern: Tachysystole: > 5 Contractions in 10 Minutes Resting Tone (Palpate): Relaxed Pitocin Checklist: At Least 1 Acceleration of 15 bpm x 15 Seconds in 30 Minutes or Adequate Variabi lity; No More than 1 Late Deceleration Occurred in Past 30 Minutes; No More than 2 Variable Decelerat ions > 60 Seconds in Duration and decreasing >60 bpm in 30 minutes; No More than 5 Uterine Contractio ns in 10 Minutes for any 20 Minute Interval; Uterus Palpates Soft between Contractions ASSESSMENT A Monitor Mode: Telemetry FHR Baseline Rate : 125 Variability: Moderate 6-25 bpm Accelerations: 15X15 Decelerations: None Category: Category I Datetime: 11/24/2022 15:57 STAGE 2 Pushing Position: Pushing with Contractions Datetime: 11/24/2022 15:51 VAGINAL EXAM Dilatation (cm): 10.0 Effacement (%): 100 Station: 2 Exam by: Amy Jessica Datetime: 11/24/2022 15:30 I/O Interventions: [place] Cath Inserted Datetime: 11/24/2022 15:29 SpO2 (%): 100 Datetime: 11/24/2022 14:55 ANESTHESIA Epidural Procedure: Completed Datetime: 11/24/2022 14:52 Patient Position/Activity: Left Tilt Datetime: 11/24/2022 14:47 Anesthesia Comments: Lidocain Datetime: 11/24/2022 14:40 Communication Comments: Provider bedside Datetime: 11/24/2022 14:38 Comments: Pt. sitting for epidural Datetime: 11/24/2022 14:28 COMMUNICATION Communication: Call/Page Placed to Provider Datetime: 11/24/2022 14:00 Monitor Interventions for UA: [place] Adjusted Datetime: 11/24/2022 13:30 MEDICATIONS Pitocin (milliunits): Increased to @ 6 Datetime: 11/24/2022 13:00 Contraction Comments: pt. walking in [place], talking through contractions Datetime: 11/24/2022 12:29 PATIENT CARE IV/Blood Work: IV Started Datetime: 11/24/2022 10:00 Temperature (C): 36.6 Datetime: 11/24/2022 08:41 Membrane Status: Ruptured Membranes Rupture Method: Artificial Amniotic Fluid Color: Clear Amniotic Fluid Amount: Small Amniotic Fluid Odor: Normal Membrane Comments: Teri Lopez CNM, ruptured pt. Vaginal Exam Comments: provider ruptured membranes
== END 2022-11-25 18:00 | disposition home or self-care (01) | DRG 807 ==
LOC: WFO 07:49 → FBP 07:51 → WFO 08:33 → FBP 08:34
PROVIDERS: ADMIT Nurse Practitioner Obstetrics & Gynecology; ATTEND Nurse Practitioner Obstetrics & Gynecology
PROC: 10E0XZZ Delivery of Products of Conception, External Approach (ICD-10-PCS; principal; 2022-11-24)
PROC: 3E033VJ Introduction of Other Hormone into Peripheral Vein, Percutaneous Approach (ICD-10-PCS; 2022-11-24)
PROC: 10907ZC Drainage of Amniotic Fluid, Therapeutic from Products of Conception, Via Natural or Artificial Opening (ICD-10-PCS; 2022-11-24)
DX: O99.02 Anemia complicating childbirth (principal); Z37.0 Single live birth; Z3A.39 39 weeks gestation of pregnancy; Z63.79 Other stressful life events affecting family and household
CPT/HCPCS: 36415; 85025; 86850; 86900; 86901; A9270; J7120

== ENCOUNTER 2023-02-15 20:04 | Emergency (ER) | payer MEDICAID ==
--- NOTE | 2023-02-15 20:41 | ED Physician Documentation ---
<Regine Bernardo - Last Filed: 02/15/23 20:55> PD HPI FEMALE - Stated complaint Stated Complaint: BLEEDING/6 WEEK PREG - Chief complaint Chief Complaint: Abd Pain PD PAST MEDICAL HISTORY - Past Medical History Cardiovascular: None Respiratory: None Neuro: Migraines Endocrine/Autoimmune: None GI: None CHERRY SORTER: None : None HEENT: None Psych: Depression, Anxiety, Obsessive compulsive disorder Musculoskeletal: None Derm: None - Past Surgical History Past Surgical History: No General: Other - Present Medications Home Medications: Ambulatory Orders Medication Instructions Recorded Confirmed No Known Home Medications 02/15/23 02/15/23 - Allergies Allergies/Adverse Reactions: Allergies Allergy/AdvReac Type Severity Reaction Status Date / Time No Known Drug Allergies Allergy Verified 02/15/23 20:22 - Social History Does the pt smoke?: No Smoking Status: Never smoker Does the pt drink ETOH?: No Does the pt have substance abuse?: No - Immunizations Immunizations are current?: Yes - POLST Patient has POLST: No Departure - Departure Disposition: 01 Home, Self Care Clinical Impression: Complete miscarriage Condition: Stable Instructions: ED Miscarriage Completed Comments: Your hormone levels are completely negative and your ultrasound does not show any remaining products in your uterus. You may begin trying for another , if you wish, immediately. As far as your bleeding, since you are presumably finishing up a miscarriage, it is best that you use pads and not tampons. At this point in time, if you have further questions about the possible causes of your early miscarriages, it would be a good idea to keep the OB appointment that you have for the and talk to your OB further about this. Forms: PCP List <Alexa Fierro L - Last Filed: 02/15/23 21:31> PD HPI FEMALE - History obtained from History obtained from: Patient - Additional information Additional information: The patient comes to the emergency department with chief complaint of positive test at home and now vaginal bleeding. She states that she has been trying to have a baby with her boyfriend and that on February 01, she took a test and it happened to be positive. She states she took 3 more over the ensuing days including 3 days ago and they were all positive. The patient states that she began bleeding this morning and soaked 2 maxi pads. She is on her third maxi pad and she states that it is "moderately soaked". The patient states she has had some lower abdominal cramping. No passage of tissue that she has noted. She has passed a few clots. The patient's last menstrual period was about 16 months ago because she had a in the meantime. She is 3 months at this point in time. The patient denies any other complaints at this time. PD ED PE NORMAL - Vitals Vital signs reviewed: Yes - General General: Alert and oriented X 3, No acute distress, Well developed/nourished - HEENT HEENT: Atraumatic, PERRL, EOMI, Moist mucous membranes - Neck Neck: Supple, no meningeal sign - Cardiac Cardiac: RRR, No murmur - Respiratory Respiratory: No respiratory distress, Clear bilaterally - Abdomen Abdomen: Soft, Non distended, Other (Mild lower abdominal tenderness left greater than right, no rebound or guarding.) - Derm Derm: Normal color, Warm and dry, No rash - Extremities Extremities: No deformity - Neuro Neuro: Alert and oriented X 3 - Psych Psych: Normal mood, Normal affect Results - Vitals Vitals: Vital Signs - 24 hr 02/15/23 20:15 Temperature 37.0 C Heart Rate 62 Respiratory 17 Rate Blood Pressure 123/85 H O2 Saturation 99 Oxygen O2 Source Room air - Labs Labs: Laboratory Tests 02/15/23 20:27 Beta HCG, Quant < 0.6
[2023-02-15 21:47] VITALS: BP 122/80; O2SAT 94
--- NOTE | 2023-02-15 22:47 | Ultrasound Report ---
PROCEDURE: OB First Trimester INDICATIONS: 6 wks preg/vag bleed OUTSIDE/PRIOR DATING DATA: Last menstrual period (LMP): Unsure. LMP-based estimated date of delivery (IVAN): Not applicable. TECHNIQUE: Real-time scanning was performed of the fetus and maternal pelvic organs, with image documentation. COMPARISON: None. FINDINGS: Anteverted uterus without visible endometrial fluid collection. The endometrium measures 7 .3 mm. No myometrial mass. The cervix is grossly closed. There is no fluid in the cul-de-sac. Both ovaries have a normal follicular echotexture without dominant follicle. IMPRESSION: 1. No sonographic evidence of intrauterine . An early is not entirely excluded. Ec topic is much less likely. Correlate with beta hCG trend. 2. Normal maternal ovaries without definite corpus luteum. 3. Preliminary results given by the product analyst to the ordering provider immediately following the st udy. Reviewed by: Deanne Stephens MD on 02/15/2023 10:46 PM PDT Approved by: Deanne Stephens MD on 02/15/2023 10:46 PM PDT Station ID: [id number]
== END 2023-02-15 21:44 | disposition home or self-care (01) ==
LOC: ED 20:04
DX: O03.9 Complete or unspecified spontaneous abortion without complication (principal); Z3A.01 Less than 8 weeks gestation of pregnancy
CPT/HCPCS: 36415; 81001; 81003; 84702; 87086; 99283; 99284

== ENCOUNTER 2023-04-07 16:24 | Emergency (ER) | payer MEDICAID ==
[2023-04-07 16:42] VITALS: BP 126/87; O2SAT 100
--- NOTE | 2023-04-07 16:56 | ED Physician Documentation ---
PD HPI LOWER EXT INJURY - Stated complaint Stated Complaint: LT KNEE PX - Chief complaint Chief Complaint: Ext Problem - History obtained from History obtained from: Patient - Additional information Additional information: She is 4 months and wants to know if she is again. She has not had a period yet, but she and her boyfriend have been trying. She also injured her left knee today. She was doing squats and felt a pop in the left knee around 2 PM with progressive pain since. She is able to walk and bear weight. 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 : None HEENT: None Psych: Depression, Anxiety, Obsessive compulsive disorder Musculoskeletal: None Derm: None - Past Surgical History Past Surgical History: No General: Other - Present Medications Home Medications: Ambulatory Orders Medication Instructions Recorded Confirmed No Known Home Medications 02/15/23 04/07/23 - Allergies Allergies/Adverse Reactions: Allergies Allergy/AdvReac Type Severity Reaction Status Date / Time No Known Drug Allergies Allergy Verified 04/07/23 16:39 - Social History Does the pt smoke?: No Smoking Status: Never smoker Does the pt drink ETOH?: No Does the pt have substance abuse?: No - Immunizations Immunizations are current?: Yes - POLST Patient has POLST: No PD ED PE NORMAL - Vitals Vital signs reviewed: Yes - General General: Alert and oriented X 3, No acute distress - Derm Derm: Normal color, Warm and dry - Extremities Extremities: Other (Left knee has a small effusion, no deformity. Painless passive range of motion. ACL, PCL, LCL, MCL testing is intact. She does have pain with grind testing.) - Neuro Neuro: Alert and oriented X 3 Results - Vitals Vitals: Vital Signs - 24 hr 04/07/23 04/07/23 16:35 17:55 Temperature 36 C L Heart Rate 88 Respiratory 16 17 Rate Blood Pressure 126/87 H O2 Saturation 100 Oxygen O2 Source Room air - Labs Labs: Laboratory Tests 04/07/23 16:45 Urine HCG, Qual NEGATIVE - Rads (name of study) 4 view x-ray of the left knee was negative Relevant Findings:: Final report received, EMP independent interpretation of test PD Medical Decision Making - ED course ED course: 22-year-old woman wanting to know if she is , she is not, and has a left knee injury that seems like a mild meniscus injury. Placed into a knee immobilizer and up on crutches. Relevant x-rays negative. Declined pain medication. Departure - Departure Disposition: 01 Home, Self Care Clinical Impression: Left knee pain Qualifiers: Chronicity: acute Qualified Code(s): M25.562 - Pain in left knee Left knee sprain Qualifiers: Encounter type: initial encounter Involved ligament of knee: unspecified ligament Qualified Code(s): S83.92XA - Sprain of unspecified site of left knee, initial encounter Condition: Good Record reviewed to determine appropriate education?: Yes Instructions: ED Meniscal Injury Knee Poss Follow-Up: [facility] [Provider Group] Comments: You were found to not be today. The x-ray looks okay, I think you have a mild meniscal injury. You should take it easy for the next few days. Follow- up with our orthopedic surgeon next week if not improving. You can take Tylenol and/or ibuprofen as needed for pain. Forms: PCP List Discharge Date/Time: 04/07/23 17:56
[2023-04-07 17:05] LABS: HCG UR QUAL NEGATIVE
--- NOTE | 2023-04-07 17:27 | XRAY Report ---
PROCEDURE: Knee 4 View LT INDICATIONS: Left knee injury TECHNIQUE: 4 views of the knee(s) were acquired. COMPARISON: None. FINDINGS: Bones: No fractures or dislocations. No suspicious bony lesions. Soft tissues: No knee joint effusion. No suspicious soft tissue calcifications or masses. IMPRESSION: No acute bony abnormality. If pain persists with conservative management, consider repeat x-ray in 10 -14 days or cross-sectional imaging. Reviewed by: Leobardo Mccarthy MD on 04/07/2023 5:25 PM PST Approved by: Leobardo Mccarthy MD on 04/07/2023 5:25 PM PST Station ID: [id number]
== END 2023-04-07 17:56 | disposition home or self-care (01) ==
LOC: ED 16:24
DX: M25.562 Pain in left knee (principal)
CPT/HCPCS: 81025; 99283; 99284

== ENCOUNTER 2023-04-12 08:00 | Outpatient (CLI) | payer MEDICAID ==
--- NOTE | 2023-04-12 14:33 | XRAY Report ---
PROCEDURE: Knee 3 View LT INDICATIONS: LEFT KNEE PAIN TECHNIQUE: 3 views of the knee(s) were acquired. COMPARISON: Left knee radiographs 04/07/2023, 11/12/2018. FINDINGS: Bones: No fractures or dislocations. No periosteal reaction. No suspicious bony lesions. Soft tissues: No knee joint effusion. No suspicious soft tissue calcifications or masses. IMPRESSION: No acute bony abnormality. No joint effusion. If clinically indicated MRI could be considered for further evaluation. Reviewed by: Poncho Oliveira MD on 04/12/2023 2:31 PM PST Approved by: Poncho Oliveira MD on 04/12/2023 2:31 PM PST Station ID: [id number]
== END 2023-04-12 23:59 | disposition home or self-care (01) ==
LOC: DI.WOS 08:00
PROVIDERS: ATTEND Orthopaedic Surgery
DX: M25.562 Pain in left knee (principal)

== ENCOUNTER 2023-06-27 16:53 | Outpatient (CLI) | payer MEDICAID | END 2023-06-27 16:54 | disposition home or self-care (01) | LOC: LAB 16:53 | PROVIDERS: ATTEND Nurse Practitioner | DX: Z32.01 Encounter for pregnancy test, result positive (principal) | CPT/HCPCS: 36415; 84702 ==

== ENCOUNTER 2023-07-20 15:32 | Outpatient (CLI) | payer MEDICAID | END 2023-07-20 15:33 | disposition home or self-care (01) | LOC: LAB 15:32 | PROVIDERS: ATTEND Nurse Practitioner | DX: Z32.01 Encounter for pregnancy test, result positive (principal) | CPT/HCPCS: 36415; 84702 ==

== ENCOUNTER 2023-08-08 12:17 | Emergency (ER) | payer MEDICAID ==
--- NOTE | 2023-08-08 13:40 | ED Physician Documentation ---
PD HPI UPPER EXT INJURY - Stated complaint Stated Complaint: R HAND LAC - Chief complaint Chief Complaint: Laceration - History obtained from History obtained from: Patient - Additonal information Additional information: Patient is a 23-year-old female presenting for evaluation of laceration to her right thumb that she believes is from either resting her hand on a mandolin or Against a knife that was sitting on the kitchen counter. Does not take a blood thinner.Tetanus is up-to-date. 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 : None HEENT: None Psych: Obsessive compulsive disorder, Depression, Anxiety Musculoskeletal: None Derm: None - Past Surgical History Past Surgical History: No General: Other - Present Medications Home Medications: Ambulatory Orders Medication Instructions Recorded Confirmed Iron Fum,Ps/Folic/Bcomp,C No.9 1 ea PO DAILY 08/08/23 08/08/23 [Iron Folate Plus Capsule] metFORMIN [Glucophage] 500 mg PO ONCE 08/08/23 08/08/23 - Allergies Allergies/Adverse Reactions: Allergies Allergy/AdvReac Type Severity Reaction Status Date / Time No Known Drug Allergies Allergy Verified 08/08/23 12:28 - Social History Does the pt smoke?: No Smoking Status: Never smoker Does the pt drink ETOH?: No Does the pt have substance abuse?: No - Immunizations Immunizations are current?: Yes - POLST Patient has POLST: No PD ED PE NORMAL - General General: Alert and oriented X 3, No acute distress, Well developed/nourished - HEENT HEENT: Atraumatic - Respiratory Respiratory: No respiratory distress - Extremities Extremities: Other (Avulsion to distal right thumb, no nailbed involvement, Normal range of motion of thumb) Results - Vitals Vitals: Vital Signs - 24 hr 08/08/23 08/08/23 12:26 14:01 Temperature 36.3 C L Heart Rate 68 68 Respiratory 16 16 Rate Blood Pressure 117/72 122/81 H O2 Saturation 96 100 Oxygen O2 Source Room air Procedures - Laceration (location) R thumb Length in cm: 1 Wound type: Superficial (Avulsion), Clean Wound preparation: Hibiclens, Irrigated copiously NS Skin layer closure: Dermabond Other: Patient tolerated well, No complications, Neurovascular intact, Dressing applied, Tetanus UTD PD Medical Decision Making - ED course ED course: Patient with avulsion of skin to right thumb with bleeding. Wound is not amenable to sutures. Wound was cleaned and closed with Dermabond with good hemostasis.Advised on wound care instructions as well as concerning symptoms to return for. Departure - Departure Disposition: 01 Home, Self Care Clinical Impression: Laceration of right thumb Condition: Stable Instructions: ED Laceration Ext Skin Glue Comments: You have a laceration to your right thumb. This was repaired with skin glue. Please keep the wound clean and dry. Please keep the dressing on for the next 24 hours. You will need to take caution with this digit while it is healing. Return to the ER with any concerns such as signs of infection. Forms: PCP List, Activity restrictions Discharge Date/Time: 08/08/23 14:01
[2023-08-08 14:11] VITALS: BP 122/81; O2SAT 100
== END 2023-08-08 14:01 | disposition home or self-care (01) ==
LOC: ED 12:17
DX: S61.011A Laceration without foreign body of right thumb without damage to nail, initial encounter (principal); W45.8XXA Other foreign body or object entering through skin, initial encounter; Z79.84 Long term (current) use of oral hypoglycemic drugs; Z79.899 Other long term (current) drug therapy
CPT/HCPCS: 12001; 99283

== ENCOUNTER 2023-08-22 13:11 | Emergency (ER) | payer MEDICAID ==
[2023-08-22 13:26] VITALS: BP 121/74; O2SAT 98
--- NOTE | 2023-08-22 13:37 | ED Physician Documentation ---
PD HPI FOCAL NEURO - Stated complaint Stated Complaint: RAMIREZ,FATIGUE,SHAKES - Chief complaint Chief Complaint: Neuro - History obtained from History obtained from: Patient - Additional information Additional information: This is an otherwise healthy 23-year-old woman with history of iron deficiency anemia who for quite some time now has had progressive dissociative episodes. She says she will sometimes just be sitting on the couch and then zoned out for an hour. They have been progressive and getting longer. This culminated about 10 days ago when she cut her thumb. She says she was seen here but does not recall coming to the hospital and then later that night had more dissociation and a right facial droop and was seen at [facility]. She actually does not remember going there either, but does remember having a CT of her head there. Since then she has had some headaches which she describes as "numbness of her brain." But no nausea, light sensitivity. She says there is a possibility of . Denies drug or alcohol use. The right facial droop resolved on the index date that was about 2 weeks ago. She does not recall what if any other testing was done at [facility] on that day. States her primary care has referred her to neurology which I agreed was very appropriate. 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 HEENT: None Psych: Obsessive compulsive disorder, Depression, Anxiety Musculoskeletal: None Derm: None - Past Surgical History Past Surgical History: No General: Other - Present Medications Home Medications: Ambulatory Orders Medication Instructions Recorded Confirmed Iron Fum,Ps/Folic/Bcomp,C No.9 1 ea PO DAILY 08/08/23 08/08/23 [Iron Folate Plus Capsule] metFORMIN [Glucophage] 500 mg PO ONCE 08/08/23 08/08/23 - Allergies Allergies/Adverse Reactions: Allergies Allergy/AdvReac Type Severity Reaction Status Date / Time No Known Drug Allergies Allergy Verified 08/22/23 13:19 - Social History Does the pt smoke?: No Smoking Status: Never smoker Does the pt drink ETOH?: No Does the pt have substance abuse?: No - Immunizations Immunizations are current?: Yes - POLST Patient has POLST: No PD ED PE NORMAL - Vitals Vital signs reviewed: Yes - General General: Alert and oriented X 3, No acute distress - HEENT HEENT: PERRL, EOMI - Neck Neck: Supple, no meningeal sign, No bony TTP - Cardiac Cardiac: RRR, No murmur - Respiratory Respiratory: No respiratory distress, Clear bilaterally - Abdomen Abdomen: Non tender - Neuro Neuro: Alert and oriented X 3, plans examiner 2-12 intact, No motor deficit, No sensory deficit Eye Opening: Spontaneous Motor: Obeys Commands Verbal: Oriented GCS Score: 15 NIHSS - Time Time: 13:30 - Level of Consciousness Level of consciousness: (0) Alert, Keenly responsive LOC Questions: (0) Answers both Q's correct LOC Commands: (0) Performs both correctly - Gaze Best Gaze: (0) Normal - Visual Visual: (0) No loss - Facial Palsy Facial Palsy: (0) Normal, symmetrical movement - Motor Arms (both separate) Motor Arm (right): (0) No drift Motor Arm (left): (0) No drift - Motor Legs (both separate) Motor Leg (right): (0) No drift Motor Leg (left): (0) No drift - Limb Ataxia Limb Ataxia: (0) Absent - Sensory Sensory: (0) Normal - Best Language Best Language: (0) No aphasia - Dysarthria Dysarthria: (0) Normal - Extinction and Inattention (formally neg Extinction and inattention: (0) No abnormality - Total Score/Results Total Score/Result: 0 Results - Vitals Vitals: Vital Signs - 24 hr 08/22/23 08/22/23 13:16 13:19 Temperature 36.2 C L 36.5 C Heart Rate 77 77 Respiratory 16 16 Rate Blood Pressure 121/74 121/74 O2 Saturation 98 98 Oxygen O2 Source Room air - Labs Labs: Laboratory Tests 08/22/23 08/22/23 08/22/23 13:37 13:37 13:48 WBC 6.5 RBC 4.30 Hgb 12.8 Hct 37.9 MCV 88.1 MCH 29.8 MCHC 33.8 RDW 12.2 Plt Count 221 MPV 9.7 Neut # (Auto) 4.0 Lymph # (Auto) 1.7 [place] # (Auto) 0.6 Eos # (Auto) 0.1 Baso # (Auto) 0.1 Absolute Nucleated RBC 0.00 Nucleated RBC % 0.0 Sodium 140 Potassium 4.0 Chloride 105 Carbon Dioxide 30 Anion Gap 5.0 L BUN 20 Creatinine 0.7 Estimated GFR (MDRD) 105 Glucose 83 Calcium 10.3 Magnesium 1.7 Iron 84 TIBC 370 % Saturation 23 Transferrin 264 Total Bilirubin 1.4 H AST 14 ALT 10 Alkaline Phosphatase 45 Total Protein 6.8 Albumin 4.6 Globulin 2.2 Albumin/Globulin Ratio 2.1 TSH 0.59 Urine Color YELLOW Urine Clarity CLEAR Urine pH 7.5 Ur Specific [place] 1.020 Urine Protein NEGATIVE Urine Glucose (UA) NEGATIVE Urine Ketones NEGATIVE Urine Occult Blood NEGATIVE Urine Nitrite NEGATIVE Urine Bilirubin NEGATIVE Urine Urobilinogen 0.2 (NORMAL) Ur Leukocyte Esterase NEGATIVE Ur Microscopic Review NOT INDICATED Urine Culture Comments NOT INDICATED Urine HCG, Qual NEGATIVE Urine Opiates Screen NEGATIVE Ur Buprenorphine Scrn NEGATIVE Ur Oxycodone Screen NEGATIVE Urine Methadone Screen NEGATIVE Ur Barbiturates Screen NEGATIVE Ur Tricyclics Screen NEGATIVE Ur Phencyclidine Scrn NEGATIVE Ur Amphetamine Screen NEGATIVE U Methamphetamines Scrn NEGATIVE U Benzodiazepines Scrn NEGATIVE Urine Cocaine Screen NEGATIVE U Cannabinoids Screen NEGATIVE Ur Drug Screen Comment CUTOFF CONC BELOW: PD Medical Decision Making - ED course ED course: Records from [facility] dated August [address] Joshua notes a chief complaint of "right lower lip droop." And similar complaints of spaciness and dissociative. Workup in the department on that date demonstrated unremarkable vital signs. Labs demonstrating unremarkable CBC, unremarkable CMP, negative troponin, negative urine drug screening, negative urinalysis. CT head and CT angiography of the head was negative. The cause of her symptoms is unclear but there is no emergency medical condition present. She is seeking neurology consultation which is appropriate. 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 Between today and the visit at [place] 2 weeks ago you had extensive testing done which was all negative/normal. Reasonable to follow-up with neurology as you are already planning. Return for new or worsening symptoms. Forms: PCP List Discharge Date/Time: 08/22/23 14:30
[2023-08-22 13:43] LABS: BASOPHILS # (AUTO) 0.1 10^3/uL (0.0-0.1); BASOPHILS % (AUTO) 0.8 %; EOSINOPHILS # (AUTO) 0.1 10^3/uL (0.0-0.7); EOSINOPHILS % (AUTO) 1.8 %; HCT - HEMATOCRIT 37.9 % (37.0-47.0); HGB - HEMOGLOBIN 12.8 g/dL (12.0-16.0); LYMPHOCYTES # (AUTO) 1.7 10^3/uL (1.5-3.5); LYMPHOCYTES % (AUTO) 25.5 %; MEAN CORPUSCULAR HEMOGLOBIN 29.8 pg (27.0-31.0); MEAN CORPUSCULAR HGB CONC 33.8 g/dL (32.0-36.0); MEAN CORPUSCULAR VOLUME 88.1 fL (81.0-99.0); MEAN PLATELET VOLUME 9.7 fL (7.9-10.8); MONOCYTES # (AUTO) 0.6 10^3/uL (0.0-1.0); MONOCYTES % (AUTO) 9.8 %; NEUTROPHILS % (AUTO) 61.9 %; PLT - PLATELET COUNT 221 10^3/uL (130-450); RED CELL DISTRIBUTION WIDTH 12.2 % (12.0-15.0); WHITE BLOOD COUNT 6.5 x10^3/uL (4.8-10.8)
[2023-08-22] MEDS: SUMAtriptan 6 MG/0.5 ML VIAL SUBQ STA (13:47)
[2023-08-22 13:56] LABS: BILIRUBIN,URINE NEGATIVE (NEGATIVE); GLUCOSE, URINE (UA) NEGATIVE (NEGATIVE); KETONES,URINE (UA) NEGATIVE (NEGATIVE); LEUKOCYTE ESTERASE, URINE NEGATIVE (NEGATIVE); NITRITE,URINE NEGATIVE (NEGATIVE); OCCULT BLOOD,URINE NEGATIVE (NEGATIVE); PH,URINE 7.5 PH (5.0-7.5); PROTEIN,URINE NEGATIVE (NEGATIVE); UROBILINOGEN,URINE 0.2 (NORMAL) E.U./dL (NORMAL)
[2023-08-22 13:58] LABS: ALBUMIN 4.6 g/dL (3.2-5.5); ALBUMIN/GLOBULIN RATIO 2.1 (1.0-2.2); BILIRUBIN,TOTAL 1.4 mg/dL (0.2-1.0); CALCIUM 10.3 mg/dL (8.5-10.3); CREATININE 0.7 mg/dL (0.6-1.3); MAGNESIUM 1.7 mg/dL (1.7-2.3); TOTAL PROTEIN 6.8 g/dL (6.4-8.9)
[2023-08-22 13:58] LABS: CLARITY,URINE CLEAR (CLEAR); HCG UR QUAL NEGATIVE
[2023-08-22 14:04] LABS: AMPHETAMINE SCREEN,URINE NEGATIVE (NEGATIVE); BARBITURATE SCREEN,UR NEGATIVE (NEGATIVE); BENZODIAZEPINES SCREEN, URINE NEGATIVE (NEGATIVE); BUPRENORPHINE SCREEN, URINE NEGATIVE (NEGATIVE); COCAINE SCREEN URINE NEGATIVE (NEGATIVE); METHADONE SCREEN, URINE NEGATIVE (NEGATIVE); METHAMPHETAMINES SCREEN, URINE NEGATIVE (NEGATIVE); OPIATE SCREEN, URINE NEGATIVE (NEGATIVE); OXYCODONE SCREEN, URINE NEGATIVE (NEGATIVE); THC CANNABINOID SCREEN, URINE NEGATIVE (NEGATIVE); TRICYCLIC ANTIDEPRESSANT,URINE NEGATIVE (NEGATIVE)
[2023-08-22 14:13] LABS: THYROID STIMULATING HORMONE 0.59 uIU/mL (0.34-5.60)
== END 2023-08-22 14:30 | disposition home or self-care (01) ==
LOC: ED 13:11
DX: F44.1 Dissociative fugue (principal); D50.9 Iron deficiency anemia, unspecified; Z79.84 Long term (current) use of oral hypoglycemic drugs
CPT/HCPCS: 36415; 80053; 80306; 81001; 81003; 81025; 83540; 83735; 84443; 84466; 85025; 87086; 96372; 99283; 99284

== ENCOUNTER 2023-12-28 16:28 | Outpatient (CLI) | payer MEDICAID, OTHER ==
--- NOTE | 2023-12-29 12:56 | Ultrasound Report ---
PROCEDURE: OB Anatomy Scan INDICATIONS: SUPERVISION OF OUTSIDE/PRIOR DATING DATA: Last menstrual period (LMP): Unsure. LMP-based estimated date of delivery (IVAN): Not applicable. First dating scan (date and location): 10/18/2023. Estimated date of delivery (IVAN) from first dating scan: 05/08/2024. The below data below was generated using the clinical IVAN of 05/08/2024 TECHNIQUE: Real-time scanning was performed of the fetus, with image documentation and biometric measurements. Endovaginal scanning: Not performed. COMPARISON: None. FINDINGS: General: A single living intrauterine gestation is present. Presentation: Vertex Placenta: Placental position is posterior, without previa. Amniotic fluid index: 11.6 cm, 17.5% for gestational age. heart rate: 141 beats per minute. Maternal cervical canal: 3.16 cm long; normal length is 2.5 cm or more. biometrics: Biparietal diameter: 4.88 cm, 20 weeks 5 days, 32.9% Head circumference: 18.87 cm, 21 weeks 1 day, 41.1% Abdominal circumference: 16.16 cm, 21 weeks 2 days, 46.5% Femur length: 3.48 centimeters, 21 weeks 0 days, 34.6% Estimated gestational age from initial scan: 21 weeks 1 day Composite gestational age from present scan: 21 weeks 3 days Estimated weight and percentile: 400 g, 42.8 percentile Measurement variability in biometric dating: +/- 10 days from 12-20 weeks gestation, +/- 2 weeks from 20-30 weeks gestation, +/- 3 weeks at 30 weeks gestation or later. Anatomic survey: Neuro: Ventricles are normal at less than 10 mm. Cisterna magna is normal at 3-11 mm. Cerebellum i s normal in size and morphology. Nuchal skin fold: Normal at less than 6 mm between 14 and 20 weeks gestational age. Face: Nose and lips, facial profile are normal. Spine: No evidence for spina bifida. Heart: 4-chambered heart is present, with normal ventricular outflow tracts. Diaphragm: Diaphragm is intact. Stomach: Left-sided stomach is present. Kidneys: No hydronephrosis. Normal is less than 5 mm in 2nd trimester, less than 7 mm in 3rd trimester. Cord: 3 vessel cord has orthotopic insertion. Bladder: Normal in size. Extremities: All 4 extremities are visualized. IMPRESSION: Single living intrauterine at 21 weeks 1 day, IVAN of 05/08/2024. Estimated weight of 400 g, 42.8 percentile. Normal anatomy survey. Reviewed by: Yury Summers MD on 12/29/2023 12:54 PM PDT Approved by: Yury Summers MD on 12/29/2023 12:54 PM PDT Station ID: [id number]
== END 2023-12-28 16:29 | disposition home or self-care (01) ==
LOC: DI 16:28
PROVIDERS: ATTEND Nurse Practitioner Obstetrics & Gynecology
DX: Z34.02 Encounter for supervision of normal first pregnancy, second trimester (principal); Z36.89 Encounter for other specified antenatal screening

== ENCOUNTER 2024-01-12 17:38 | Emergency (ER) | payer OTHER ==
--- NOTE | 2024-01-12 18:05 | ED Physician Documentation ---
History of Present Illness - Stated complaint Stated Complaint: SOA/RAMIREZ - Chief complaint Chief Complaint: General - Additonal information Additional information: Patient is a 23-year-old female presenting to the emergency department with G5, P2 approximately 21 weeks with symptoms of dizziness, lightheadedness, nausea, chest pressure that this been going on since this early afternoon while she was at work. She was talking to her boss and felt her vision go blurry at this time. She notes symptoms have been intermittent throughout the day and giving the symptoms she became concerned. Patient's has been progressing normally she had a recent ultrasound showing normal anatomical ultrasound. She is following with D[facility] SETTER here at [facility]. She notes no abdominal pain vaginal discharge or bleeding. She notes persistent chest pressure but no significant shortness of breath. She did not take anything for her symptoms she is on a regular vitamin. She notes her history has been complicated as back in July she had these 2 episodes of facial drooping that she was seen at [facility] and here for. Patient had CT scans and CTAs at the time showed no acute findings. Her symptoms were to be followed by her neurologist but she is unable to get into him until March. She notes she has had these continuous seizure-like episodes. Where she has full body shaking that occurs while she is asleep at night. Her notes they last for few minutes and then resolved. She has no tongue biting or incontinence episodes. She is not on any medications for this and has no history of epilepsy. She is not on any antiepileptic medications for this and is waiting for further workup by her neurologist in the outpatient setting. She notes her PCP is aware of them but she does not go to the emergency department when they occur as she knows nothing has been done in the past for them. Review of notes from back in July showed she did not have any shaking-like episodes or seizure-like activity but reported facial drooping and dissociation. Her CT and CTA at the time was negative. I do not have notes from [facility] to compare to. PD PAST MEDICAL HISTORY - Past Medical History Cardiovascular: None Respiratory: None Neuro: Migraines, Seizure disorder Endocrine/Autoimmune: None GI: None MANAGER LOCAL: None : None HEENT: None Psych: Obsessive compulsive disorder, Depression, Anxiety Musculoskeletal: None Derm: None - Past Surgical History Past Surgical History: No General: Other - Present Medications Home Medications: Ambulatory Orders Medication Instructions Recorded Confirmed Iron Fum,Ps/Folic/Bcomp,C No.9 1 ea PO DAILY 08/08/23 08/08/23 [Iron Folate Plus Capsule] metFORMIN [Glucophage] 500 mg PO ONCE 08/08/23 08/08/23 Magnesium Oxide [Magnesium] 400 mg PO DAILY 5 Days #5 cap 01/12/24 - Allergies Allergies/Adverse Reactions: Allergies Allergy/AdvReac Type Severity Reaction Status Date / Time shellfish derived Allergy Anaphylaxis Verified 01/12/24 17:57 - Social History Does the pt smoke?: No Smoking Status: Never smoker Does the pt drink ETOH?: No Does the pt have substance abuse?: No - Immunizations Immunizations are current?: Yes - POLST Patient has POLST: No PD ED PE NORMAL - Vitals Vital signs reviewed: Yes - General General: Alert and oriented X 3 - HEENT HEENT: Atraumatic, Moist mucous membranes, Pharynx benign, Other (No oropharnygeal swelling.) - Neck Neck: Supple, no meningeal sign, No adenopathy - Cardiac Cardiac: RRR, No murmur, No rub, Strong equal pulses - Respiratory Respiratory: No respiratory distress, Clear bilaterally, Other - Derm Derm: Normal color, Warm and dry, No rash - Extremities Extremities: No deformity - Neuro Neuro: Alert and oriented X 3, 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, No motor deficit, No sensory deficit, Normal speech Eye Opening: Spontaneous Motor: Obeys Commands Verbal: Oriented GCS Score: 15 Results - Vitals Vitals: Oxygen O2 Source Room air - Labs Labs: Laboratory Tests 01/12/24 01/12/24 01/12/24 18:14 18:14 18:14 WBC 9.1 RBC 3.65 L Hgb 11.5 L Hct 32.5 L MCV 89.0 MCH 31.5 H MCHC 35.4 RDW 12.5 Plt Count 192 MPV 9.5 Neut # (Auto) 6.4 Lymph # (Auto) 1.9 [place] # (Auto) 0.7 Eos # (Auto) 0.1 Baso # (Auto) 0.0 Absolute Nucleated RBC 0.00 Nucleated RBC % 0.0 Sodium 135 Potassium 3.6 Chloride 105 Carbon Dioxide 25 Anion Gap 5.0 L BUN 8 Creatinine 0.5 L Estimated GFR (MDRD) 154 Glucose 77 Calcium 9.5 Magnesium 1.5 L Total Bilirubin 0.7 AST 13 ALT 9 L Alkaline Phosphatase 37 L Troponin I High Sens < 2.3 L Total Protein 6.3 L Albumin 3.8 Globulin 2.5 Albumin/Globulin Ratio 1.5 Urine Color Urine Clarity Urine pH Ur Specific Cooper Urine Protein Urine Glucose (UA) Urine Ketones Urine Occult Blood Urine Nitrite Urine Bilirubin Urine Urobilinogen Ur Leukocyte Esterase Ur Microscopic Review Urine Culture Comments Nasal Adenovirus (PCR) Nasal B. parapertussis DNA (PCR) Nasal Coronavir 229E PCR Nasal Coronavir HKU1 PCR Nasal Coronavir NL63 PCR Nasal Coronavir OC43 PCR Nasal Enterovir/Rhinovir PCR Nasal Influenza B PCR Nasal Influenza A PCR Nasal Parainfluen 1 PCR Nasal Parainfluen 2 PCR Nasal Parainfluen 3 PCR Nasal Parainfluen 4 PCR Nasal RSV (PCR) Nasal B.pertussis DNA PCR Nasal C.pneumoniae (PCR) Zach Human Metapneumo PCR Nasal M.pneumoniae (PCR) Nasal SARS-CoV-2 (PCR) 01/12/24 01/12/24 18:50 19:33 WBC RBC Hgb Hct MCV MCH MCHC RDW Plt Count MPV Neut # (Auto) Lymph # (Auto) Marion # (Auto) Eos # (Auto) Baso # (Auto) Absolute Nucleated RBC Nucleated RBC % Sodium Potassium Chloride Carbon Dioxide Anion Gap BUN Creatinine Estimated GFR (MDRD) Glucose Calcium Magnesium Total Bilirubin AST ALT Alkaline Phosphatase Troponin I High Sens Total Protein Albumin Globulin Albumin/Globulin Ratio Urine Color YELLOW Urine Clarity CLEAR Urine pH 7.0 Ur Specific Cooper 1.020 Urine Protein NEGATIVE Urine Glucose (UA) NEGATIVE Urine Ketones NEGATIVE Urine Occult Blood NEGATIVE Urine Nitrite NEGATIVE Urine Bilirubin NEGATIVE Urine Urobilinogen 0.2 (NORMAL) Ur Leukocyte Esterase NEGATIVE Ur Microscopic Review NOT INDICATED Urine Culture Comments NOT INDICATED Nasal Adenovirus (PCR) NOT DETECTED Nasal B. parapertussis DNA (PCR) NOT DETECTED Nasal Coronavir 229E PCR NOT DETECTED Nasal Coronavir HKU1 PCR NOT DETECTED Nasal Coronavir NL63 PCR NOT DETECTED Nasal Coronavir OC43 PCR NOT DETECTED Nasal Enterovir/Rhinovir PCR DETECTED A Nasal Influenza B PCR NOT DETECTED Nasal Influenza A PCR NOT DETECTED Nasal Parainfluen 1 PCR NOT DETECTED Nasal Parainfluen 2 PCR NOT DETECTED Nasal Parainfluen 3 PCR NOT DETECTED Nasal Parainfluen 4 PCR NOT DETECTED Nasal RSV (PCR) NOT DETECTED Nasal B.pertussis DNA PCR NOT DETECTED Nasal C.pneumoniae (PCR) NOT DETECTED Zach Human Metapneumo PCR NOT DETECTED Nasal M.pneumoniae (PCR) NOT DETECTED Nasal SARS-CoV-2 (PCR) NOT DETECTED PD Medical Decision Making - ED course Complexity details: reviewed old records, reviewed results, re-evaluated patient ED course: Patient is a 23 year old female presenting to the ED approximately 22 weeks presenting with lightheaded episode that occured earlier this afternoon while at work. Patient presents with improvement in symptoms but persistent fatigue. Vitals stable on arrival. Patient is normotensive, afebrile and nontachycardic on arrival. heart tones are stable and labs obtained here in the ED are unremarkable. Patient did test positive for rhinovirus here in the ED. Patient updated on findings as symptoms of lightheadedness and fatigue most likely secondary to these symptoms. discussed with patient she should continue to follow-up with neurology in the outpatient setting however symptoms otherwise stable and she was given strict return precautions. Patient will follow-up with her obgyn next week as scheduled. she was instructed she could take tylenol for her symptoms and she was agreeable with this plan. Departure - Departure Disposition: 01 Home, Self Care Clinical Impression: Rhinovirus, Hypomagnesemia Condition: Good Instructions: ED Viral Syndrome Prescriptions: Magnesium Oxide [Magnesium] 400 mg PO DAILY 5 Days #5 cap Comments: You were seen here in the emergency department for your symptoms of lightheadedness dizziness. Your workup here showed you had rhinovirus. Your heart tones for your are stable your labs are reassuring you have some mildly low magnesium which I have sent some to your pharmacy. Continue to follow-up with your DIE SETTER in the outpatient setting. If you develop any worsening shortness of breath dizziness nausea vomiting persistent fevers you should return to the emergency department. Forms: PCP List Discharge Date/Time: 01/12/24 21:36
[2024-01-12 18:18] LABS: BASOPHILS % (AUTO) 0.3 %; EOSINOPHILS # (AUTO) 0.1 10^3/uL (0.0-0.7); EOSINOPHILS % (AUTO) 0.8 %; HCT - HEMATOCRIT 32.5 % (37.0-47.0); HGB - HEMOGLOBIN 11.5 g/dL (12.0-16.0); LYMPHOCYTES # (AUTO) 1.9 10^3/uL (1.5-3.5); LYMPHOCYTES % (AUTO) 20.9 %; MEAN CORPUSCULAR HEMOGLOBIN 31.5 pg (27.0-31.0); MEAN CORPUSCULAR HGB CONC 35.4 g/dL (32.0-36.0); MEAN PLATELET VOLUME 9.5 fL (7.9-10.8); MONOCYTES # (AUTO) 0.7 10^3/uL (0.0-1.0); MONOCYTES % (AUTO) 7.5 %; NEUTROPHILS # (AUTO) 6.4 10^3/uL (1.5-6.6); NEUTROPHILS % (AUTO) 70.2 %; PLT - PLATELET COUNT 192 10^3/uL (130-450); RED BLOOD COUNT 3.65 10^6/uL (4.20-5.40); RED CELL DISTRIBUTION WIDTH 12.5 % (12.0-15.0); WHITE BLOOD COUNT 9.1 x10^3/uL (4.8-10.8)
[2024-01-12 18:33] LABS: ALBUMIN 3.8 g/dL (3.2-5.5); ALBUMIN/GLOBULIN RATIO 1.5 (1.0-2.2); BILIRUBIN,TOTAL 0.7 mg/dL (0.2-1.0); CALCIUM 9.5 mg/dL (8.5-10.3); CREATININE 0.5 mg/dL (0.6-1.3); MAGNESIUM 1.5 mg/dL (1.7-2.3); POTASSIUM 3.6 mmol/L (3.5-4.5); TOTAL PROTEIN 6.3 g/dL (6.4-8.9)
[2024-01-12 19:38] LABS: BILIRUBIN,URINE NEGATIVE (NEGATIVE); GLUCOSE, URINE (UA) NEGATIVE (NEGATIVE); KETONES,URINE (UA) NEGATIVE (NEGATIVE); LEUKOCYTE ESTERASE, URINE NEGATIVE (NEGATIVE); NITRITE,URINE NEGATIVE (NEGATIVE); OCCULT BLOOD,URINE NEGATIVE (NEGATIVE); PROTEIN,URINE NEGATIVE (NEGATIVE); UROBILINOGEN,URINE 0.2 (NORMAL) E.U./dL (NORMAL)
[2024-01-12 19:42] LABS: CLARITY,URINE CLEAR (CLEAR)
[2024-01-12 19:48] LABS: B. PARAPERTUSSIS- RESP PCR PAN NOT DETECTED; B. PERTUSSIS- RESP PCR PANEL NOT DETECTED; C. PNEUMONIAE- RESP PCR PANEL NOT DETECTED; CORONAVIRUS 229E-RESP PCR NOT DETECTED; CORONAVIRUS HKU1-RESP PCR NOT DETECTED; CORONAVIRUS NL63-RESP PCR NOT DETECTED; CORONAVIRUS OC43-RESP PCR NOT DETECTED; HUMAN METAPNEUMOVIRUS NOT DETECTED; INFLUENZA A- RESP PCR PANEL NOT DETECTED; INFLUENZA B - RESP PCR PANEL NOT DETECTED; M. PNEUMONIAE- RESP PCR PANEL NOT DETECTED; PARAINFLUENZA VIRUS 1 NOT DETECTED; PARAINFLUENZA VIRUS 2 NOT DETECTED; PARAINFLUENZA VIRUS 3 NOT DETECTED; PARAINFLUENZA VIRUS 4 NOT DETECTED; RHINOVIRUS/ENTEROVIRUS DETECTED; RSV- RESP PCR PANEL NOT DETECTED; SARS-CoV-2 -RESP PCR PANEL NOT DETECTED
[2024-01-12 21:04] VITALS: BP 129/85; O2SAT 98
[2024-01-12] MEDS: MAGNESIUM OXIDE 400 MG TABLET PO ONE (21:04)
== END 2024-01-12 21:36 | disposition home or self-care (01) ==
LOC: ED 17:38
DX: O98.512 Other viral diseases complicating pregnancy, second trimester (principal); B34.8 Other viral infections of unspecified site; O99.282 Endocrine, nutritional and metabolic diseases complicating pregnancy, second trimester; E83.42 Hypomagnesemia; Z3A.21 21 weeks gestation of pregnancy
CPT/HCPCS: 36415; 80053; 81003; 83735; 84484; 85025; 87633; 93005; 99283; 99284; A9270; 81001; 87086

== ENCOUNTER 2024-05-01 07:40 | Inpatient (IN) ==
[2024-05-01] MEDS ORDERED: OXYTOCIN 10 UNIT/ML VIAL IM PRN (09:23)
[2024-05-01] MEDS ORDERED: miSOPROStoL 200 MCG TABLET BC PRN (09:23)
[2024-05-01] MEDS ORDERED: LACTATED RINGERS 1,000 ML IV PRN (09:23)
[2024-05-01] MEDS ORDERED: hydrALAZINE INJ 20 MG/ML VIAL IVP PRN ×2 (09:23)
[2024-05-01] MEDS ORDERED: METHYLERGONOVINE 0.2 MG/ML VIAL IM PRN (09:23)
[2024-05-01] MEDS ORDERED: lidocaine 1% 20 ML MDV ID PRN (09:23)
[2024-05-01] MEDS ORDERED: SODIUM CHLORIDE FLUSH 0.9% 10 ML SYRINGE IVP PRN (09:23)
[2024-05-01] MEDS ORDERED: TRANEXAMIC ACID IN NACL 1,000 MG/100 ML BAG IV PRN (09:23)
[2024-05-01] MEDS ORDERED: LABETALOL 20 MG/4 ML SYRINGE IVP PRN ×3 (09:23)
[2024-05-01] MEDS ORDERED: CARBOPROST TROMETHAMINE 250 MCG/ML VIAL IM PRN (09:23)
[2024-05-01] MEDS ORDERED: NIFEdipine 10 MG CAPSULE PO PRN ×2 (09:23→16:39)
--- NOTE | 2024-05-01 09:32 | HISTORY & PHYSICAL EXAMINATION ---
Admit History Smoking Status: Never smoker HPI Current : HPI: This 23 yo @ 39+0 weeks by 11 week ultrasound, unknown LMP. Upon arrival her cervix was 4/80/-2 and vertex with intact membranes. TURPIN SCRORE: 8 She has been a patient of [facility] since her transfer from [facility] for continuity of midwifery care at 24+4 weeks. Her has remained uncomplicated with the exception of depression managed on Wellbutrin, mild anemia managed with iron. ROS: No Headache, visual changes or right upper quadrant abdominal pain. Denies significant N/V. Denies urinary urgency or dysuria. All other symptoms reviewed and were negative except per HPI. In the event of an emergency, accepts the administration of blood products. Recent BP: WNL Labs: pending. Total maternal weight gain: 41# OB Hx: G1: 03/13/2020: [place], 39+6, epidural, 30 minute second stage, 2nd degree, @ [facility] G2:02/25/2022: SAB G3: 11/24/2022: [place] 39+3, epidural, 15 minute second stage, intact perineum @ [facility] G4-6:2022- 2023: SAB x 3 per patient, not otherwise documented G7: Current Medical Hx: Anemia in Surgical Hx: None Social Hx: Monogamous with male partner, , Kamaljit. Denies current use of alcohol or tobacco, marijuana or other recreational drugs. Reports that she is safe in current relationship. lives with and two toddler aged boys. Family Hx: Denies family history of congenital anomalies, Cystic Fibrosis or chromosomal abnormalities. 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 Type and crossmatch on admission. Pre- Weight: 119 BMI: 20.4 Blood type: A positive Antibody Screen: POSITIVE "No unexpected antibodies to common red cell antigens were identified. Titers not indicated" CBC: PLT 259 HCT 36.7 HGB 12.7 RUB: immune VZV: NON-IMMUNE HBsAg: NR HepC: NR RPR: NR HIV: NR Flu: declines Covid: x 3 PAP: 05/12/2023 WNL, no hx abnormal GC/CT: neg HSV: denies in self and partner Genetic testing: NIPT neg FAS: 12/28/2023 WNL Placenta: Posterior, no previa Cord: 3VC ELIS: 11.6, WNL EFW: 42.8%tile 50gm OGCT: 139 3HR GTT: TDAP: declines Breast Pump: RSV: 03/26/2024 Antibody screen +, negative in January CBC: PLT 189 /HCT 31.8/HGB 11.1 RPR: NR GBS: Negative Delivery plan: likely epdiural, likely AROM, possibly Pitocin. MOD: Anticipate Physical exam: Normocephalic, atraumatic Normal work of breathing Abdomen gravid, soft, nontender. EFW 3700 FHR baseline 130s, moderate variability, + accelerations, no decelerations Contractions irregular, soft resting tone SVE 4/80/-2 , vertex, membranes intact Bilateral LE's no edema Mood is good. Assessment: 23 yo @ 39 weeks gestation by 11 wk U/S Scheduled term elective IOL FHR 130s Cat I GBS NEG Plan: Admit to [facility] for IOL Start pitocin and titrate per protocol AROM when cervix moves more forward continuous monitoring Jacuzzi PRN. Nitrous oxide PRN. Epidural PRN Maternal Request. Anticipate . Meds/Allgy Home Medications Ambulatory Orders Medication Instructions Recorded Confirmed vitamins no.159-iron 1 tab PO DAILY 02/07/24 05/01/24 fumarate 28 mg-folic acid 800 mcg tablet ( Vitamin) bupropion HCl 150 mg 24 hr tablet, 150 mg PO DAILY 05/01/24 05/01/24 extended release ferrous sulfate 325 mg (65 mg 325 mg PO DAILY 05/01/24 05/01/24 iron) tablet (Feosol) Allergies Allergies Allergy/AdvReac Type Severity Reaction Status Date / Time shellfish derived Allergy Anaphylaxis Verified 04/24/24 13:05 [facility] Medical History Medical History Other stressful life events affecting family and household (01/21/22) Mixed anxiety and depressive disorder (01/21/22) Dissociative disorder (08/19/23) Family History Family History (Updated 02/07/24 @ 12:10 by Carolina Echavarria MA) Mother Mental disorder Father Mental disorder Aunt CVA (cerebral vascular accident) Maternal grandmother CVA (cerebral vascular accident) Social History Social History Smoking Status: Never smoker Do you dip or chew tobacco?: No Do you vape?: No Do you feel safe in your home environment?: Yes Suffered physical, verbal, emotional, or financial abuse?: No History of Abuse: No Are you sexually active?: Yes POLST Patient has POLST: No Plan for Labor Plan For Labor I expect patient to be DC'd or transferred within 96 hours.: Yes Conclusion/Plan Lab Results 05/01/24 09:44
[2024-05-01 10:26] LABS: BASOPHILS % (AUTO) 0.6 %; EOSINOPHILS # (AUTO) 0.1 10^3/uL (0.0-0.7); EOSINOPHILS % (AUTO) 0.8 %; HCT - HEMATOCRIT 32.4 % (37.0-47.0); HGB - HEMOGLOBIN 11.3 g/dL (12.0-16.0); LYMPHOCYTES # (AUTO) 1.3 10^3/uL (1.5-3.5); LYMPHOCYTES % (AUTO) 17.5 %; MEAN CORPUSCULAR HGB CONC 34.9 g/dL (32.0-36.0); MEAN CORPUSCULAR VOLUME 88.8 fL (81.0-99.0); MEAN PLATELET VOLUME 10.2 fL (7.9-10.8); MONOCYTES # (AUTO) 0.8 10^3/uL (0.0-1.0); MONOCYTES % (AUTO) 10.7 %; NEUTROPHILS % (AUTO) 70.1 %; PLT - PLATELET COUNT 194 10^3/uL (130-450); RED BLOOD COUNT 3.65 10^6/uL (4.20-5.40); WHITE BLOOD COUNT 7.2 x10^3/uL (4.8-10.8)
[2024-05-01] MEDS ORDERED: ALBUTEROL SULFATE INH PRN (10:52)
[2024-05-01] MEDS ORDERED: [UNRECOGNIZED DRUG - OTHER] INH PRN (10:52)
[2024-05-01] MEDS ORDERED: OXYTOCIN/SODIUM CHLORIDE 500 ML IV SCH (11:00)
[2024-05-01] MEDS: LACTATED RINGERS 1,000 ML IV PRN (11:01)
[2024-05-01] MEDS: OXYTOCIN/SODIUM CHLORIDE 500 ML IV SCH (11:01)
--- NOTE | 2024-05-01 11:17 | PHARMACY PROGRESS NOTE ---
Best Possible Medication History Admit Date and Time: Home Medications Medication Instructions Recorded Confirmed Type vitamins no.159-iron 1 tab PO DAILY 02/07/24 05/01/24 History fumarate 28 mg-folic acid 800 mcg tablet ( Vitamin) bupropion HCl 150 mg 24 hr tablet, 150 mg PO DAILY 05/01/24 05/01/24 History extended release ferrous sulfate 325 mg (65 mg 325 mg PO DAILY 05/01/24 05/01/24 History iron) tablet (Feosol) Processed by: Pharmacy Medications reviewed in ED?: No Medication History completed: Yes Patient Interview: Completed Secondary Source(s): Insurance records [facility] Statement: As the person ultimately responsible for medication therapy, providers are able to order a medication from an existing home medication list in [facility] via the "Reconcile Routine" prior to Confirmation of that medication by developer support engineer. Such practice is discouraged except when the physician, in their clinical judgm ent, deems that a medical need exists for a medication without regard to previous use.
[2024-05-01] MEDS ORDERED: ALBUTEROL NEB 2.5 MG/3 ML INH PRN (11:19)
--- NOTE | 2024-05-01 13:38 | ANESTHESIA PROCEDURE NOTE ---
Pre-Anesthesia VS, & Labs Diagnosis Surgical Diagnosis:: term labor pain, IUP Procedure Procedure: Epidural for Vitals Vital Signs: Temp Pulse Resp BP 36.9 C 108 H 18 138/82 H 05/01/24 09:38 05/01/24 09:38 05/01/24 09:38 05/01/24 09:38 NPO Last Fluid Intake: t/o day Last Food Intake: full breakfast Is Patient ?: Yes Lab Results Current Lab Results: Laboratory Tests 05/01/24 09:44: WBC 7.2, RBC 3.65 L, Hgb 11.3 L, Hct 32.4 L, MCV 88.8, MCH 31.0, MCHC 34.9, RDW 12.0, Plt Count 194, MPV 10.2, Neut # (Auto) 5.0, Lymph # (Auto) 1.3 L, [place] # (Auto) 0.8, Eos # (Auto) 0.1, Baso # (Auto) 0.0, Absolute Nucleated RBC 0.00, Nucleated RBC % 0.0, Blood Type A POSITIVE, Antibody Screen NEGATIVE Lab results reviewed: Yes 05/01/24 09:44 Meds/Allgy Home Medications Ambulatory Orders Medication Instructions Recorded Confirmed vitamins no.159-iron 1 tab PO DAILY 02/07/24 05/01/24 fumarate 28 mg-folic acid 800 mcg tablet ( Vitamin) bupropion HCl 150 mg 24 hr tablet, 150 mg PO DAILY 05/01/24 05/01/24 extended release ferrous sulfate 325 mg (65 mg 325 mg PO DAILY 05/01/24 05/01/24 iron) tablet (Feosol) Allergies Allergies Allergy/AdvReac Type Severity Reaction Status Date / Time shellfish derived Allergy Anaphylaxis Verified 04/24/24 13:05 [facility] Medical History Medical History Other stressful life events affecting family and household (01/21/22) Mixed anxiety and depressive disorder (01/21/22) Dissociative disorder (08/19/23) Family History Family History (Updated 02/07/24 @ 12:10 by Carolina Echavarria MA) Mother Mental disorder Father Mental disorder Aunt CVA (cerebral vascular accident) Maternal grandmother CVA (cerebral vascular accident) Social History Social History Smoking Status: Never smoker Do you dip or chew tobacco?: No Do you vape?: No Do you feel safe in your home environment?: Yes Suffered physical, verbal, emotional, or financial abuse?: No History of Abuse: No Are you sexually active?: Yes POLST Patient has POLST: No Anesthesia Exam (Expanded) Exam General: Alert, Oriented x3 and Cooperative Dental: WNL Mouth Openin Fingerbreadth Neck Mobility: Normal Mallampati classification: II Thyromental Distance: 4-6 cm Respiratory: No respiratory distress Cardiovascular: Regular rate Neurological: Normal speech Mental/Cognitive Status: Alert/Oriented X3 and Normal for patient Cognitive Status: Within normal limits Plan Plan Anesthesia Type: Epidural Consent for Procedure(s) Verified and Reviewed: Yes Code Status: Attempt Resuscitation ASA Classification ASA classification: 2-Mild systemic disease Is this case an emergency?: No
[2024-05-01] MEDS: OXYTOCIN/SODIUM CHLORIDE 500 ML IV PRN (15:29)
--- NOTE | 2024-05-01 16:17 | DELIVERY NOTE ---
Delivery Note Delivery Comments (Free Text/Narrative) Delivery Comments (Free Text/Narrative): This 23 -year-old, @39 weeks gestation by 11 week ultrasound presented @ 0800 this morning for scheduled induction of labor and in good condition. Cervix was 4/80/-2 and Vertex presentation by humberto's. Alvarado score 8. GBS negative. Oxytocin maximum infusion rate of 8 mu/min. FHR pattern demonstrated 135 baseline in a category I prior to second stage. Normal labor course. AROM occurred @1230. She then progressed to complete/complete and ready to deliver. : Normal spontaneous vaginal delivery of a viable male on 05/01/2024 @1527. Nuchal x 1 (delivered through) and compound delivery of right hand. The was placed on maternal abdomen, stimulated, dried and placed skin to skin. Apgars 8 & 9 @ 1 & 5 minutes. The umbilical cord was allowed to stop pulsating at which time it was doubly clamped by delivering provider and cut by FOB. 3VC. Cord blood was obtained. Fundal massage and gently cord traction applied for active management of the third stage, placenta delivered spo ntaneously and intact and appeared normal. EBL 250cc. Placenta was not sent to pathology. Pitocin administered via IV for hemostasis and allowed to run freely. Uterine massage was performed until uterus was deemed firm. weight pending at this time. weight: 3325g. Inspection of the perineum noted to be intact. Upon re-inspection the patient was hemostatic. Uterus again massaged and found to be firm. Needle and sponge counts were correct. Uterine fundus firm and there is no excessive bleeding. Tissues well approximated. Skin to skin initiated. Family bonding well. Both mother and baby are in stable condition and doing well.
[2024-05-01] MEDS ORDERED: OXYTOCIN/SODIUM CHLORIDE 500 ML IV PRN (16:39)
[2024-05-01] MEDS ORDERED: SIMETHICONE CHEW 80 MG TABLET PO PRN (16:39)
[2024-05-01] MEDS: ACETAMINOPHEN 500 MG TABLET PO PRN (17:10)
[2024-05-01] MEDS: IBUPROFEN 600 MG TABLET PO PRN (17:10)
[2024-05-02] MEDS: DOCUSATE SODIUM 100 MG CAPSULE PO SCH (05:22)
--- NOTE | 2024-05-02 08:59 | Discharge Summary ---
Discharge Summary ALLERGIES Allergies Allergy/AdvReac Type Severity Reaction Status Date / Time shellfish derived Allergy Anaphylaxis Verified 04/24/24 13:05 MEDICATIONS Ambulatory Orders Medication Instructions Recorded Confirmed vitamins no.159-iron 1 tab PO DAILY 02/07/24 05/01/24 fumarate 28 mg-folic acid 800 mcg tablet ( Vitamin) bupropion HCl 150 mg 24 hr tablet, 150 mg PO DAILY 05/01/24 05/01/24 extended release ferrous sulfate 325 mg (65 mg 325 mg PO DAILY 05/01/24 05/01/24 iron) tablet (Feosol) LABS 05/01/24 09:44 Discharge Plan Discharge Patient Disposition: LONG TERM, Self Care Prescriptions: Continued ferrous sulfate [Feosol] 325 mg (65 mg iron) tablet 325 mg PO DAILY bupropion HCl 150 mg tablet extended release 24 hr 150 mg PO DAILY Patient Comments: take 1 tablet by mouth every morning Vitamin 28 mg iron- 800 mcg tablet 1 tab PO DAILY Print Language: Liberian Patient Instructions: Breastfeed Holds, Nutrition , Self Care
[2024-05-02] MEDS ORDERED: [UNRECOGNIZED DRUG - MIXTURE] PO SCH (09:00)
[2024-05-02 09:36] VITALS: O2SAT 99
[2024-05-02] MEDS: PRENATAL VITAMIN TABLET PO SCH (10:14)
--- NOTE | 2024-05-02 11:03 | Discharge Summary ---
Discharge Summary HOSPITAL COURSE Hospital Course: Date of Admission: 05/01/2024 Date of Discharge: 05/02/2024 Diagnosis on admission: 23 yo @ 39 weeks gestation by 11 wk U/S Scheduled term elective IOL FHR 130s Cat I GBS NEG Diagnosis on Discharge 23 yo s/p following IOL intact perineum PPD#1, routine course Physical exam: Normal uterine involution, FF below umbilicus Small rubra bleeding Minimal perineal discomfort. Bilateral LE's no edema Mood is good. Brief History: She is a patient of [facility] who presented on 05/01/2024 for scheduled elective induction of labor at 39 weeks gestation. Induction included low dose oxytocin and ROM. Labor progressed quickly from 4cm to complete and she managed with only nitrous for pain management.. She spontaneously delivered a viable male apgars 8 and 9 at 1 and 5 minutes respectively. EBL 250 ml. intact perineum. weight: 3325g. She has been doing well in her course. She is ambulating and tolerating a regular diet. She is urinating without difficulty and her lochia is normal. Her pain is well controlled without narcotic management. She will be discharged to home today on day 1 and encouraged IBU, tylenol and stool softeners PRN. She intends to follow up with [facility] in 1 week for telehealth. A telehealth appointment has been scheduled and discussed with her 05/08/2024 @ 4pm. She has been given precautions to call if she has any new or worsening sx such as fevers, chills, abdominal pain, increasing bleeding, or foul smelling vaginal lochia. preeclamptic precautions reviewed as well. VZV: NON-Immune (vaccine offered) Rubella: immune Blood Type: A+ ALLERGIES Allergies Allergy/AdvReac Type Severity Reaction Status Date / Time shellfish derived Allergy Anaphylaxis Verified 04/24/24 13:05 MEDICATIONS Ambulatory Orders Medication Instructions Recorded Confirmed vitamins no.159-iron 1 tab PO DAILY 02/07/24 05/01/24 fumarate 28 mg-folic acid 800 mcg tablet ( Vitamin) bupropion HCl 150 mg 24 hr tablet, 150 mg PO DAILY 05/01/24 05/01/24 extended release ferrous sulfate 325 mg (65 mg 325 mg PO DAILY 05/01/24 05/01/24 iron) tablet (Feosol) LABS 05/01/24 09:44 Discharge Plan Discharge Patient Disposition: RENEA, Self Care Prescriptions: Continued ferrous sulfate [Feosol] 325 mg (65 mg iron) tablet 325 mg PO DAILY bupropion HCl 150 mg tablet extended release 24 hr 150 mg PO DAILY Patient Comments: take 1 tablet by mouth every morning Vitamin 28 mg iron- 800 mcg tablet 1 tab PO DAILY Print Language: Croatian Patient Instructions: Breastfeed Holds, Nutrition , Self Care
[2024-05-02] MEDS: buPROPion XL 150 MG TABLET PO SCH (11:54)
[2024-05-02 16:18] VITALS: BP 139/88; TEMP 98.2
--- NOTE | 2024-05-02 16:20 | Labor Flowsheet ---
Labor Flowsheet Datetime Report Generated by CPN: 05/02/2024 16:19 Datetime: 05/02/2024 16:04 VITAL SIGNS NBP Sys/Ngoc/Mean (mmHg): 139 : 88 : 98 Pulse: 78 Datetime: 05/02/2024 07:00 Stage of : Datetime: 05/01/2024 17:24 Patient Care Comments: Datetime: 05/01/2024 17:12 Hygiene: Nithya Care Datetime: 05/01/2024 16:16 Membranes Ruptured Date/Time: 05/01/2024 12:35 Cervical Ripening Agents: Other Cervical Ripening Agents Other: pitocin Datetime: 05/01/2024 16:00 Temperature (C): 36.9 Temperature Route: Oral Datetime: 05/01/2024 15:44 Respirations: 16 PAIN Pain Scale: 5 Pain Presence: Constant Pain Type: Cramping Pain Location: Abdomen Pain Goal: warm pack Datetime: 05/01/2024 15:32 LaborFlag: Labor Datetime: 05/01/2024 15:24 VAGINAL EXAM Dilatation (cm): 10.0 Effacement (%): 100 Station: 1 Exam by: CNM Loulou Datetime: 05/01/2024 15:15 UTERINE ACTIVITY Monitor Mode: External Frequency (min): 1-2 Quality: Moderate Duration (sec): 50-80 Pattern: Tachysystole: > 5 Contractions in 10 Minutes Resting Tone (Palpate): Relaxed ASSESSMENT A Monitor Mode: External US FHR Baseline Rate : 125 Variability: Moderate 6-25 bpm Accelerations: 15X15 Decelerations: Variable Category: Category II Datetime: 05/01/2024 15:11 Pain Assessment Comments: continue using nitrous with contractions Datetime: 05/01/2024 15:01 Vital Sign Comments: Pt in pain during contraction Datetime: 05/01/2024 14:51 Medication Comments: using nitrous COMMUNICATION Communication Comments: CNM Loulou at bedside Datetime: 05/01/2024 14:30 Pitocin Checklist: At Least 1 Acceleration of 15 bpm x 15 Seconds in 30 Minutes or Adequate Variabi lity; No More than 1 Late Deceleration Occurred in Past 30 Minutes; No More than 2 Variable Decelerat ions > 60 Seconds in Duration and decreasing >60 bpm in 30 minutes; No More than 5 Uterine Contractio ns in 10 Minutes for any 20 Minute Interval; Uterus Palpates Soft between Contractions Datetime: 05/01/2024 14:28 Pain Relief Measures: Comfort Measures Pain Coping: Breathing Through Contractions Datetime: 05/01/2024 13:57 Comfort Measures: Back Rub Given; Family Support Datetime: 05/01/2024 13:33 Monitor Interventions for FHR: Ultrasound Adjusted Comments: no audible decel, difficulty tracing due to maternal movement Datetime: 05/01/2024 13:29 ANESTHESIA Anesthesia Comments: Anesthesia at bedside with consents Datetime: 05/01/2024 13:24 Monitor Interventions for UA: Vantage Adjusted MEDICATIONS Pitocin (milliunits): Increased to @ 8 mu Datetime: 05/01/2024 12:45 Contraction Comments: irregular, toco adjusted Datetime: 05/01/2024 12:35 Membrane Status: Ruptured Membranes Rupture Method: Artificial Amniotic Fluid Color: Clear Amniotic Fluid Amount: Small Cervix, Consistency: Moderate Cervix, Position: Midposition Datetime: 05/01/2024 09:44 PATIENT CARE IV/Blood Work: IV Started; Labs Drawn with IV Start Datetime: 05/01/2024 09:25 SpO2 (%): 99
== END 2024-05-02 16:10 | disposition home or self-care (01) | DRG 807 ==
LOC: WFO 07:40 → FBP 07:40
PROVIDERS: ADMIT Obstetrics & Gynecology; ATTEND Nurse Practitioner